=== PATIENT | female | born 1955 | race Caucasian/White ===

== ENCOUNTER 2018-04-14 13:15 | Observation (INO) ==
[2018-04-14] MEDS ORDERED: Pantoprazole 40 MG VIAL IVP SCH (14:15)
[2018-04-14] MEDS ORDERED: Ondansetron 4 MG/2 ML VIAL IVP PRN ×2 (14:15→21:29)
[2018-04-14] MEDS ORDERED: Naloxone 0.4 MG/ML INJ IVP PRN ×2 (14:15→21:29)
[2018-04-14] MEDS ORDERED: *HR* Promethazine 25 MG/ML VIAL IVP PRN (14:15)
[2018-04-14] MEDS ORDERED: 0.9 % Sodium Chloride 1,000 ML IVC SCH (14:15)
[2018-04-14] MEDS ORDERED: OXYCODONE Oral CONC 10 MG/0.5 ML ORAL.SYG SL PRN ×2 (14:18)
--- NOTE | 2018-04-14 14:51 | General Surg History&Physical ---
<Idalia Aguilar - Last Filed: 04/14/18 14:41> Date of Encounter: 04/14/18 Time of Encounter: 14:41 Assessment and Plan (1) Acute appendicitis Current Visit: Yes Status: Acute The assessment and plan as outlined above was discussed with the patient and/or family members who expressed understanding and agreement. All questions were answered. CT Results: IMPRESSION: 1. Sludge and/or small stones in the gallbladder. No pericholecystic fluid. 2. Right renal cyst. 3. Postsurgical changes left upper quadrant likely related to bariatric surgery. 4. No bowel obstruction or bowel wall thickening. Other incidental findings as above. RECOMMENDATIONS: Ultrasound right upper quadrant is advised. Consideration may be given to radionuclide hepatobiliary imaging which can be performed on a nonemergent basis. D/ / Carol Harrison MD / Carol Harrison MD Interpreting Provider: Carol Harrison MD NDUM: The appendix is dilated measuring 10.35 mm at the base with some shotty adjacent lymph nodes and mesenteric fat infiltration distally. Additionally, there is question of a small dot of air. Findings are compatible with appendicitis with early abscess formation not excluded. Addendum was communicated to Clarissa at the clinician's office at 1200 hours, 14 April 2018. Physician was not available. A callback number was provided in the event that the physician had any questions. D/ / Carol Harrison MD / Carol Harrison MD Interpreting Provider: Carol Harrison MD Plan: Patient with acute appendicitis per CT noted below. She is recommended to undergo a laparoscopic appendectomy. Recommendations, risks, and benefits have been reviewed with the patient and she is agreeable to proceed. -NPO -serial labs -discomfort management and supportive care -CXR per assessment and plan below -incentive spirometry -G.I. and DVT prophylaxis Qualifiers: Acute appendicitis type: with localized peritonitis Qualified Code(s): K35.3 - Acute appendicitis with localized peritonitis (2) Cholelithiasis Current Visit: Yes Status: Acute CT abdomen and pelvis noted below. The patient inquires as to whether she could have her gallbladder out during her appendectomy. Did review with this patient that her current right upper quadrant pain could be referred from her appendicitis. Will review with attending surgeon for further recommendations. CT results: IMPRESSION: 1. Sludge and/or small stones in the gallbladder. No pericholecystic fluid. 2. Right renal cyst. 3. Postsurgical changes left upper quadrant likely related to bariatric surgery. 4. No bowel obstruction or bowel wall thickening. Other incidental findings as above. RECOMMENDATIONS: Ultrasound right upper quadrant is advised. Consideration may be given to radionuclide hepatobiliary imaging which can be performed on a nonemergent basis. D/ / Carol Harrison MD / Carol Harrison MD Interpreting Provider: Carol Harrison MD NDUM: The appendix is dilated measuring 10.35 mm at the base with some shotty adjacent lymph nodes and mesenteric fat infiltration distally. Additionally, there is question of a small dot of air. Findings are compatible with appendicitis with early abscess formation not excluded. Addendum was communicated to Clarissa at the clinician's office at 1200 hours, 14 April 2018. Physician was not available. A callback number was provided in the event that the physician had any questions. D/ / Carol Harrison MD / Carol Harrison MD Interpreting Provider: Carol Harrison MD Qualifiers: Cholelithiasis location: gallbladder Cholecystitis presence: without cholecystitis Biliary obstruction: without biliary obstruction Qualified Code(s): K80.20 - Calculus of gallbladder without cholecystitis without obstruction (3) Cough Current Visit: Yes Status: Acute The assessment and plan as outlined above was discussed with the patient and/or family members who expressed understanding and agreement. All questions were answered. Patient reports she has been taking Z-pack for a cough. Will complete CXR (pa and lat) to r/o CAP given fever, cough, and smoking history Incentive spirometry and scheduled respiratory treatments (4) Fever Current Visit: Yes Status: Acute The assessment and plan as outlined above was discussed with the patient and/or family members who expressed understanding and agreement. All questions were answered. See assessment and plan's above Qualifiers: Fever type: unspecified Qualified Code(s): R50.9 - Fever, unspecified History of Present Illness Chief complaint: RLQ and RUQ pain HPI: Ms. Vincent is a 63 year old female with a past medical history of smoking, obesity (s/p gastric sleeve surgery), and fatigue. She presented to her PCP on with complaints of RLQ pain since Tuesday. Her PCP completed a CT of the of the abdomen and pelvis with oral and IV contrast which noted sludge and small stones in the gallbladder, a right renal cyst, and originally there was no mention of appendicitis; however, the CT was extended to show a dilated appendix measuring 10.35 mL and additionally finding of a small dot of possible air. Ms. Vincent reports approximately 6 days ago she had a sudden onset of right lower quadrant pain, associated nausea and diarrhea, anorexia, and fever. She states the discomfort is 7 out of 10 and sharp/constant. Aggravated by movement. Has no alleviating factors. She reports a Tmax of 101 at home. She denies urinary s/s. Reports diarrhea that is dark green. Denies black, tarry, or right red blood per stool. She denies symptoms of coffee ground emesis. She also reports she has had a cough recently and her PCP placed her on Z-pack. She has taken one dose. She reports sputum reduction with the cough. Additionally, Megan states she is been having colicky right upper quadrant pain for quite some time that was aggravated by eating and associated with nausea. She reported that she had had gastric sleeve surgery and felt as though her symptoms were possibly related to that however when she saw her PCP for the right lower quadrant pain CT was done which revealed sludge and possible stones. A referral was made to general surgery at that time. Past Med Surg Social Fam HX - Past Medical History Source: patient Medical history: other (History of obesity and fatigue) Psychiatric history: no psych history - Past Surgical History Surgical History: other (Gastric sleeve 2010) - Social History Smoking Status: Current every day smoker Smokeless Tobacco Status: No Alcohol use: occasionally Drug use: none Occupational status: employed Current living situation: Home - Independent Activity Level: Independent ambulation Recent Out of Country Travel Within the Last 8 Weeks: No Exposure or Possible Exposure to Illness During Travel: No Review of Systems All systems PM: reviewed and no additional remarkable complaints except as stated All systems PM: The remainder of the systems were reviewed and are negative General Surgery Exam VITAL SIGNS: Reviewed. See [employer] GENERAL: In no apparent distress. HEENT: Normocephalic, atraumatic, pupils are equal and reactive, extraocular motions intact, oropharynx is pink and moist, there is no neck adenopathy or JVD noted. CHEST/RESPIRATORY: The thorax is free from signs of trauma. Lung sounds: decreased course breath sounds CARDIAC: Regular rate and rhythm. Normal S1 and S2, without murmurs, gallops, or rubs. VASCULAR: No Edema. 2+ peripheral pulses. ABDOMEN: soft, right upper quadrant and right lower quadrant tenderness. Negative obturator sign. Positive McBurney point. MUSCULOSKELETAL: Good range of motion of all major joints. Extremities without clubbing, cyanosis or edema. NEUROLOGIC EXAM: Alert and oriented x 3. Speech normal. Follows commands. PSYCHIATRIC: Mood normal. SKIN: No rash or lesions. Results - Labs All other labs normal. <Victorina Royal - Last Filed: 04/14/18 20:45> Date of Encounter: 04/14/18 Assessment and Plan (1) Acute appendicitis Current Visit: Yes Status: Acute The assessment and plan as outlined above was discussed with the patient and/or family members who expressed understanding and agreement. All questions were answered. discussed with patient and her that she has acute appendicitis on CT, which was done tuesday, will plan laparoscopic appendectomy possible open, risks and benefits discussed and she wishes to proceed npo prn pain control antibiotics prn antiemetics Qualifiers: Acute appendicitis type: with localized peritonitis Qualified Code(s): K35.3 - Acute appendicitis with localized peritonitis History of Present Illness HPI: Ms. Vincent is a 63 year old female Past Med Surg Social Fam HX - Family History Brother Hx Family Cardiac Disorders: Yes Mother Hx Family Cancer: Yes Father Hx Family Cancer: Yes Review of Systems All systems PM: The remainder of the systems were reviewed and are negative General Surgery Exam Initial Vital Signs Resp Pulse Ox 16 100 04/14/18 15:29 04/14/18 15:29 Results - Labs 04/14/18 14:30 04/14/18 14:30 Abnormal lab results WBC 11.7 K/mcL (4.3-11.1) H 04/14/18 14:30 PT 12.4 Seconds (9.4-12.1) H 04/14/18 14:30 Diabetes panel 04/14/18 Range/Units 14:30 Sodium 137 (136-145) mEq/L Potassium 3.9 (3.5-5.1) mEq/L Chloride 103 (98-107) mEq/L Carbon Dioxide 26 (23-29) mEq/L BUN 10 (8-23) mg/dL Creatinine 0.71 (0.60-1.20) mg/dL Glucose 98 (70-105) mg/dL Calcium 9.2 (8.6-10.3) mg/dL Calcium panel 04/14/18 Range/Units 14:30 Calcium 9.2 (8.6-10.3) mg/dL Pituitary panel 04/14/18 Range/Units 14:30 Sodium 137 (136-145) mEq/L Potassium 3.9 (3.5-5.1) mEq/L Chloride 103 (98-107) mEq/L Carbon Dioxide 26 (23-29) mEq/L BUN 10 (8-23) mg/dL Creatinine 0.71 (0.60-1.20) mg/dL Glucose 98 (70-105) mg/dL Calcium 9.2 (8.6-10.3) mg/dL Adrenal panel 04/14/18 Range/Units 14:30 Sodium 137 (136-145) mEq/L Potassium 3.9 (3.5-5.1) mEq/L Chloride 103 (98-107) mEq/L Carbon Dioxide 26 (23-29) mEq/L BUN 10 (8-23) mg/dL Creatinine 0.71 (0.60-1.20) mg/dL Glucose 98 (70-105) mg/dL Calcium 9.2 (8.6-10.3) mg/dL All other labs normal. - Attending Attestation I have personally performed a face to face evaluation on this patient. I have reviewed and agree with the care plan. History and Exam by me shows:
[2018-04-14 15:01] LABS: Basophils % 0.3 %; Eosinophils # 0.1 K/mcL (0.0-0.6); Eosinophils % 0.8 %; Hematocrit 41.7 % (35.3-44.9); Hemoglobin 14.1 g/dL (11.5-15.4); Immature Granulocytes % 0.3 % (0-4); Lymphocytes # 1.9 K/mcL (0.6-4.6); Lymphocytes % 15.9 %; Mean Corpuscular HGB Conc 33.8 g/dL (31.6-35.5); Mean Corpuscular Hemoglobin 31.7 pg (28.0-33.3); Mean Corpuscular Volume 93.7 fL (83.0-100.0); Mean Platelet Volume 10.6 fL (9.4-12.4); Monocytes # 0.9 K/mcL (0.0-1.3); Monocytes % 7.6 %; Neutrophils # 8.8 K/mcL (1.6-8.9); Platelet Count 187 K/mcL (140-400); Red Blood Count 4.45 M/mcL (3.82-4.97); Red Cell Distribution Width 12.1 % (11.5-14.5); Segmented Neutrophils % 75.1 %
[2018-04-14] MEDS ORDERED: Acetaminophen IV 1,000 MG/100 ML INFUS..BTL IVPB ONE (15:04)
[2018-04-14 15:07] LABS: Activated Partial Thrombo Time 32.2 Seconds (26.0-36.0)
[2018-04-14 15:11] LABS: INR 1.1; Prothrombin Time 12.4 Seconds (9.4-12.1)
[2018-04-14 15:14] LABS: BUN/Creatinine Ratio 14 (6-26); Blood Urea Nitrogen 10 mg/dL (8-23); Calcium 9.2 mg/dL (8.6-10.3); Carbon Dioxide 26 mEq/L (23-29); Chloride 103 mEq/L (98-107); Glucose 98 mg/dL (70-105); Osmolality,Calculated 283 (280-300); Potassium 3.9 mEq/L (3.5-5.1); Sodium 137 mEq/L (136-145); eGFR For African Americans > 60 (> 60); eGFR For Non-African Americans > 60 (> 60)
[2018-04-14] MEDS: Ipratropium/Albuterol Neb 3 ML IH SCH ×4 (15:28→23:40)
[2018-04-14] MEDS ORDERED: Piperacillin/Tazobactam 3.375 GM in 0.9 % Sodium Chloride Mini Bag 100 ML IVPB SCH (16:00)
[2018-04-14] MEDS ORDERED: *HR* Propofol 200 MG/20 ML VIAL IVP ONE (16:37)
[2018-04-14] MEDS ORDERED: *HR* FentaNYL (PF) 100 MCG/2 ML VIAL ONE ×2 (16:37→18:04)
[2018-04-14] MEDS ORDERED: Dexamethasone 4 MG/ML VIAL ONE (16:40)
[2018-04-14] MEDS ORDERED: Ondansetron 4 MG/2 ML VIAL ONE (16:40)
[2018-04-14] MEDS ORDERED: *HR* Rocuronium Bromide 50 MG/5 ML VIAL ONE (16:40)
[2018-04-14] MEDS ORDERED: Neostigmine Methylsulfate 3 MG/3 ML SYRINGE ONE (16:40)
[2018-04-14] MEDS ORDERED: Albuterol 2.5 MG/3 ML NEBULIZER ONE (18:28)
--- NOTE | 2018-04-14 18:38 | Anesthesia Evaluation PreOp ---
Date of Encounter: 04/14/18 Time of Encounter: 18:36 - Past History Planned Operation: Laparoscopic Appendectomy Cardiac History: Denies any Significant Hx Pulmonary History: Smoker (20+ years), Snore [employer] History: Denies Any Significant HX Other Medical History: Denies Any Significant HX Anesthesia History: No Prior Anesthetic Complications, Past Anesthesia (gastric sleeve) Alcohol Use: occasionally Drug use: none Medications and Allergies 3 Allergy/AdvReac Type Severity Reaction Status Date / Time NSAIDS (Non-Steroidal AdvReac See Verified 04/14/18 16:20 Anti-Inflamma Comments - Meds/Allergy Pre-op Review Medications Reviewed: Yes Allergies Reviewed: Yes Beta Blockers on Current Med List: No Anesthesia Results - Labs 04/14/18 14:30 04/14/18 14:30 Anesthesia Exam Vital Signs/O2 Sat, Most Current Temp Pulse Resp BP Pulse Ox 99.0 F 80 14 110/70 99 04/14/18 15:57 04/14/18 15:57 04/14/18 15:57 04/14/18 15:57 04/14/18 15:57 Weight: 138.7 lbs NPO (# of Hours): 8 Pain Scale: 5 (abdomen) Pain Scale Used: Numeric (1 - 10) - HEENT Pupil (Motor): EOMI Mallampati: II Teeth: Edentulous Oral Opening: Greater than 3 - [employer] LOC: Oriented [employer] Motor: Normal RUE, Normal LUE, Normal RLE, Normal LLE, Normal Face [employer] Sensory: Normal: RUE, LUE, RLE, LLE, Face - Cardiac Rhythm: Regular Murmur: None - Pulmonary Breath Sounds: bilateral Clear Respiratory Effort: Symmetrical Anesthesia Assess/Plan ASA Score: 2 Modified Leisenring Scale for Level of Consciousness: Cooperative, oriented, and tranquil Anesthetic Plan: General Monitoring Plan: Standard Monitors Recovery Plan: PACU
[2018-04-14] MEDS ORDERED: *HR* Morphine 10 MG/ML VIAL ONE (19:35)
[2018-04-14] MEDS ORDERED: Acetaminophen IV 1,000 MG/100 ML INFUS..BTL ONE (19:44)
--- NOTE | 2018-04-14 20:48 | Anesthesia Evaluation Post Op ---
Date of Encounter: 04/14/18 Time of Encounter: 21:28 Notes: Patient's vital signs have been reviewed. Patient is stable postoperatively and has adequately recovered from anesthesia. Patient is determined to have stable airway patency and respiratory function including respiratory rate and oxygen saturation. Patient has a stable heart rate, blood pressure and adequate hydration. Patients mental status is acceptable. Patients temperature is appropriate. Pain and nausea are adequately controlled. - Discharge PostOp Status: Transfer Patient to floor
[2018-04-14] MEDS ORDERED: *HR* Morphine 2 MG/ML SYRINGE IVP ONE (20:56)
[2018-04-14] MEDS ORDERED: Ringers Solution, Lactated 1,000 ML ONE (21:08)
[2018-04-14] MEDS: OXYCODONE Oral CONC 10 MG/0.5 ML ORAL.SYG SL PRN (21:54)
[2018-04-14] MEDS: 0.9 % Sodium Chloride 1,000 ML IVC SCH (21:56)
[2018-04-14] MEDS: Piperacillin/Tazobactam 3.375 GM in 0.9 % Sodium Chloride Mini Bag 100 ML IVPB SCH (23:22)
[2018-04-15] MEDS: Ipratropium/Albuterol Neb 3 ML IH SCH ×6 (03:50→23:47)
[2018-04-15] MEDS: OXYCODONE Oral CONC 10 MG/0.5 ML ORAL.SYG SL PRN ×4 (04:04→23:03)
[2018-04-15 04:53] LABS: Basophils % 0.1 %; Hematocrit 37.7 % (35.3-44.9); Hemoglobin 12.6 g/dL (11.5-15.4); Immature Granulocytes % 0.5 % (0-4); Lymphocytes # 0.6 K/mcL (0.6-4.6); Lymphocytes % 4.9 %; Mean Corpuscular HGB Conc 33.4 g/dL (31.6-35.5); Mean Corpuscular Hemoglobin 31.7 pg (28.0-33.3); Mean Platelet Volume 10.5 fL (9.4-12.4); Monocytes # 0.5 K/mcL (0.0-1.3); Monocytes % 3.7 %; Neutrophils # 11.4 K/mcL (1.6-8.9); Platelet Count 158 K/mcL (140-400); Red Blood Count 3.97 M/mcL (3.82-4.97); Red Cell Distribution Width 12.2 % (11.5-14.5); Segmented Neutrophils % 90.8 %
[2018-04-15 05:16] LABS: BUN/Creatinine Ratio 12 (6-26); Blood Urea Nitrogen 9 mg/dL (8-23); Calcium 8.5 mg/dL (8.6-10.3); Carbon Dioxide 22 mEq/L (23-29); Chloride 102 mEq/L (98-107); Glucose 180 mg/dL (70-105); Osmolality,Calculated 283 (280-300); Potassium 3.8 mEq/L (3.5-5.1); Sodium 135 mEq/L (136-145); eGFR For African Americans > 60 (> 60); eGFR For Non-African Americans > 60 (> 60)
[2018-04-15] MEDS: 0.9 % Sodium Chloride 1,000 ML IVC SCH ×2 (05:58→18:16)
[2018-04-15] MEDS: Pantoprazole 40 MG VIAL IVP SCH (05:58)
[2018-04-15] MEDS: Piperacillin/Tazobactam 3.375 GM in 0.9 % Sodium Chloride Mini Bag 100 ML IVPB SCH ×2 (09:35→16:03)
--- NOTE | 2018-04-15 14:43 | Operative Note ---
Date of procedure: 04/14/18 Pre-op diagnosis: acute appendicitis Post-op diagnosis: other (Perforated appendicitis with abscess) Procedure: Laparoscopic appendectomy Complications: none immediate Anesthesia: GETA, local Local Anesthetics: 0.5% Sensorcaine HCL SubQ (cc) Surgeon: Victorina Royal Was there an baking assistant present: No Estimated blood loss (cc): 10 Specimen: appendix Condition: stable Disposition: PACU Procedure in Detail: The patient was brought into the operating suite and placed supine on the operating table. Sign-in was performed and everyone was in agreement. Anesthesia was induced and patient was endotracheally intubated by anesthesia without incident. An OG tube was placed by anesthesia. The abdomen was prepped and draped in the usual sterile fashion. A timeout was performed and again everyone was in agreement. A supraumbilical incision was made through the skin and the subcutaneous tissue with an 11 blade. Towel clamps were placed on either side of the umbilicus for retraction. S-retractors were used to dissect down to the anterior abdominal wall linea alba fascia. A Veress needle was placed into this incision and a water drop test confirmed placement and the abdomen was insufflated. We then entered the abdomen with the 5 mm 0 degree laparoscope on a 5 mm X-ramón trocar. The area under entry was visualized and there was no bleeding and no apparent bowel injury. We placed a suprapubic 5 mm port under direct visualization after first incising the skin with an 11 blade. The laparoscope was placed through this and we exchanged the supraumbilical port for a 12 mm port under direct visualization. We then placed another 5 mm port in the left lower quadrant position under direct visualization after first incising the skin with an 11 blade. The patient was placed in slight Trendelenburg left side down position. The cecum was located as was the appendix which was retrocecal and adherent to the retroperitoneum. The appendix was grasped and attempted to be retracted with a laparoscopic Basye and pus erupted from an abscess. The pus was suctioned from the abdomen and the area irrigated/suctioned. A [place] was used to dissect between the mesoappendix and the appendix at the base of the cecum. While attempting to elevate the appendix, due the inflammation and friability the mucosa of the appendix tore free from the muscle/serosa. The appendix at the base of the cecum was transected with a laparoscopic flex-ex ETS stapler using a white load. The mucosa was removed from the abdomen with a laparoscopic [place]. The remainder of the appendix was taken off the retroperitoneum with gentle blulnt dissection and hook cautery. The appendix was placed in a laparoscopic Endo Catch bag and removed via the supraumbilical incision site. The staple line was evaluated and there was no bleeding and the staple line was intact. The area was copiously irrigated with sterile saline which was then suctioned free from the abdomen. A 19 F sharonda drain was placed into the abdomen and placed along the right colic gutter and came through the abdominal wall at the left lower quadrant trocar site. Sharonda drain was secured to the skin with a 2-0 silk stitch. The insufflation was suctioned free from the abdomen and all trochars removed. We closed the abdominal wall at the supraumbilical incision site with an 0 Vicryl [id number] stitch. A 30 cc of 0.5% Marcaine was injected subcutaneously at the 3 port sites. The skin at the 5 mm port site was closed with 4-0 Monocryl interrupted subcuticular stitches. The skin at the supraumbilical incision site was closed with a 4-0 Monocryl running subcuticular stitch. Steri-Strips were applied to the wounds. The patient was extubated in the OR and tolerated the procedure well and was taken to PACU after all lap and instrument counts were correct at the end of the case.
--- NOTE | 2018-04-15 14:54 | General Surgery Progress Note ---
Date of Encounter: 04/15/18 Time of Encounter: 14:51 - Assessment and Plan (1) Perforated appendicitis Current Visit: Yes Status: Resolved pt is post op laparoscopic appendectomy for perforated appendix and intraabdominal abscess she would like to stay on clears today and not advance continue prn pain control add scheduled ofirmev gi/dvt prophylaxis pulmonary toilet OOB and ambulate continue zosyn (2) Intra-abdominal abscess Current Visit: Yes Status: Acute (3) Leukocytosis Current Visit: Yes Status: Acute due to perforated appendicitis with abscess s/p lap appy continue abx, trend wbc Qualifiers: Leukocytosis type: unspecified Qualified Code(s): D72.829 - Elevated white blood cell count, unspecified Subjective Patient reports: still having pain, tolerating liquids well, flatus, no bowel movement, afebrile Objective Vital Signs - Last 8 Hours Temp Pulse Resp BP Pulse Ox 04/15/18 12:09 98.3 F 80 14 125/82 98 04/15/18 12:02 98.2 F 92 14 115/68 96 04/15/18 11:33 16 87 04/15/18 07:55 16 91 04/15/18 06:52 97.8 F 89 14 107/64 91 Intake and Output 04/14/18 04/15/18 04/15/18 23:59 07:59 15:59 Intake Total 1280 / 1280 390 / 390 Output Total 365 / 365 1155 / 1155 Balance - 915 / 915 -765 / -765 Intake: IV Fluids 1100 / 1100 0.9 % Sodium Chloride 1,000 ML 1000 / 1000 @ 125 mls/hr IVC .Q8H KIKI Rx#: [id number] Zosyn 3.375 GM In 0.9 % Sodium 100 / 100 Chloride (Mini-Bag +) 100 ML @ 25 mls/hr IVPB Q8HR KIKI Rx#: [id number] Oral 180 / 180 390 / 390 Output: Urine 350 / 350 1150 / 1150 Estimated Blood Loss Wound Drainage Left Lower Abdomen Other: Meal Breakfast Weight 62.596 kg 62.6 kg Blood Glucose* 96 Patient Weight 04/15/18 23:59 Weight 62.6 kg - General physical appearance well developed, well nourished, moderate pain - Eyes normal ocular movement - ENT normal mucosa, normocephalic - Neck Neck exam: trachea midline - Respiratory normal expansion, clear to auscultation - Cardiovascular Cardiovascular exam: Present: RRR - Abdomen Abdomen: Present: bowel sounds present, soft, tender (appropriate post op tenderness). Absent: guarding, rebound Additional Comments: Pk drain with serous drainage, no purulence - Incision Incision: Present: clean and dry, intact - Integumentary no rash, no growths - Neurologic CN 2-12 grossly intact, normal coordination - Musculoskeletal normal posture - Psychiatric oriented to time, oriented to person, oriented to place, speech is normal, memory intact - Labs 04/15/18 04:31 04/15/18 04:31 Short CBC 04/15/18 04/14/18 Range/Units 04:31 14:30 WBC 12.5 H 11.7 H (4.3-11.1) K/mcL Hgb 12.6 D 14.1 (11.5-15.4) g/dL Hct 37.7 41.7 (35.3-44.9) % Plt Count 158 187 (140-400) K/mcL Neutrophils # 11.4 H 8.8 (1.6-8.9) K/mcL BMP 04/15/18 04/14/18 Range/Units 04:31 14:30 Sodium 135 L 137 (136-145) mEq/L Potassium 3.8 3.9 (3.5-5.1) mEq/L Chloride 102 103 (98-107) mEq/L Carbon Dioxide 22 L 26 (23-29) mEq/L BUN 9 10 (8-23) mg/dL Creatinine 0.73 0.71 (0.60-1.20) mg/dL Glucose 180 H 98 (70-105) mg/dL Calcium 8.5 L 9.2 (8.6-10.3) mg/dL Vital Signs Temp Pulse Resp BP Pulse Ox 04/15/18 12:09 98.3 F 80 14 125/82 98 04/15/18 12:02 98.2 F 92 14 115/68 96 04/15/18 11:33 16 87 04/15/18 07:55 16 91 04/15/18 06:52 97.8 F 89 14 107/64 91 04/15/18 03:52 14 96 04/15/18 03:26 98.6 F 84 16 105/63 95 04/15/18 01:00 97.9 F 87 16 101/56 94 04/14/18 23:55 97.7 F 90 16 102/59 95 04/14/18 23:40 16 96 04/14/18 23:01 97.6 F 80 14 96/62 96 04/14/18 22:26 98.2 F 78 16 108/67 97 04/14/18 21:48 98.6 F 87 16 115/65 99 04/14/18 21:29 100.2 F H 85 16 95 04/14/18 21:20 82 14 136/63 94 04/14/18 21:10 101.1 F H 85 12 130/80 94 04/14/18 21:00 85 14 129/67 95 04/14/18 20:50 85 14 108/68 94 04/14/18 20:40 99.5 F 86 16 141/77 97 04/14/18 15:57 99.0 F 80 14 110/70 99 04/14/18 15:29 16 100 Intake and Output 04/14/18 04/15/18 04/15/18 23:59 07:59 15:59 Intake Total 1280 / 1280 390 / 390 Output Total 365 / 365 1155 / 1155 Balance - 915 / 915 -765 / -765 Intake: IV Fluids 1100 / 1100 0.9 % Sodium Chloride 1,000 ML 1000 / 1000 @ 125 mls/hr IVC .Q8H KIKI Rx#: [id number] Zosyn 3.375 GM In 0.9 % Sodium 100 / 100 Chloride (Mini-Bag +) 100 ML @ 25 mls/hr IVPB Q8HR KIKI Rx#: [id number] Oral 180 / 180 390 / 390 Output: Urine 350 / 350 1150 / 1150 Estimated Blood Loss Wound Drainage Left Lower Abdomen 5 Other: Meal Breakfast Weight 62.596 kg 62.6 kg Blood Glucose* 96 Patient Weight 04/15/18 23:59 Weight 62.6 kg - VTE Documentation of Mechanical Device: Intermittent pneumatic compression device Consult Discharge Plan - Plan Referrals: Lorna Guerra REFERENCE INVESTIGATOR [Primary Care Provider] -
[2018-04-15] MEDS: Acetaminophen IV 1,000 MG/100 ML INFUS..BTL IVPB SCH (17:12)
[2018-04-16] MEDS: Acetaminophen IV 1,000 MG/100 ML INFUS..BTL IVPB SCH ×5 (00:08→23:11)
[2018-04-16] MEDS: Piperacillin/Tazobactam 3.375 GM in 0.9 % Sodium Chloride Mini Bag 100 ML IVPB SCH ×4 (00:56→23:15)
[2018-04-16] MEDS: OXYCODONE Oral CONC 10 MG/0.5 ML ORAL.SYG SL PRN ×2 (03:48→10:32)
[2018-04-16] MEDS: 0.9 % Sodium Chloride 1,000 ML IVC SCH ×2 (03:49→12:23)
[2018-04-16] MEDS: Ipratropium/Albuterol Neb 3 ML IH SCH ×6 (04:04→23:02)
[2018-04-16 05:27] LABS: Eosinophils % 0.4 %; Hemoglobin 11.2 g/dL (11.5-15.4); Immature Granulocytes % 0.3 % (0-4); Mean Corpuscular HGB Conc 32.9 g/dL (31.6-35.5); Mean Corpuscular Hemoglobin 32.3 pg (28.0-33.3); Mean Platelet Volume 10.7 fL (9.4-12.4); Monocytes % 7.4 %; Platelet Count 170 K/mcL (140-400); Red Blood Count 3.47 M/mcL (3.82-4.97); Red Cell Distribution Width 12.3 % (11.5-14.5); Segmented Neutrophils % 68.5 %
[2018-04-16 05:28] LABS: Basophils % 0.4 %; Lymphocytes # 1.7 K/mcL (0.6-4.6); Monocytes # 0.6 K/mcL (0.0-1.3); Neutrophils # 5.1 K/mcL (1.6-8.9)
[2018-04-16 05:44] LABS: BUN/Creatinine Ratio 13 (6-26); Blood Urea Nitrogen 8 mg/dL (8-23); Calcium 7.9 mg/dL (8.6-10.3); Carbon Dioxide 25 mEq/L (23-29); Chloride 109 mEq/L (98-107); Glucose 105 mg/dL (70-105); Osmolality,Calculated 283 (280-300); Potassium 3.3 mEq/L (3.5-5.1); Sodium 137 mEq/L (136-145); eGFR For African Americans > 60 (> 60); eGFR For Non-African Americans > 60 (> 60)
[2018-04-16] MEDS: Pantoprazole 40 MG VIAL IVP SCH (06:22)
--- NOTE | 2018-04-16 11:42 | General Surgery Progress Note ---
Date of Encounter: 04/16/18 Time of Encounter: 11:40 - Assessment and Plan (1) Perforated appendicitis Current Visit: Yes Status: Resolved pt is post op #2 laparoscopic appendectomy for perforated appendix and intraabdominal abscess advanced to regular continue prn pain control - start percocet ofirmev gi/dvt prophylaxis pulmonary toilet OOB and ambulate continue zosyn dc planning (2) Intra-abdominal abscess Current Visit: Yes Status: Acute continue abx wbc normal today (3) Leukocytosis Current Visit: Yes Status: Acute due to perforated appendicitis with abscess s/p lap appy continue abx, normal wbc today Qualifiers: Leukocytosis type: unspecified Qualified Code(s): D72.829 - Elevated white blood cell count, unspecified Subjective Patient reports: no new complaints, feels better, still having pain, pain is less, tolerating liquids well, flatus, no bowel movement, afebrile Objective Vital Signs - Last 8 Hours Temp Pulse Resp BP Pulse Ox 04/16/18 11:03 18 92 04/16/18 10:49 98.3 F 86 20 119/69 94 04/16/18 07:57 16 90 04/16/18 07:31 98.2 F 73 16 85/52 90 04/16/18 04:04 17 95 04/16/18 03:42 99.6 F 75 16 116/61 95 Intake and Output 04/15/18 04/16/18 04/16/18 23:59 07:59 15:59 Intake Total 1200 / 1200 1320 / 1320 270 / 270 Output Total 230 / 230 320 / 320 50 / 50 Balance 970 / 970 1000 / 1000 220 / 220 Intake: IV Fluids 1200 / 1200 1300 / 1300 0.9 % Sodium Chloride 1,000 ML 1000 / 1000 1000 / 1000 @ 125 mls/hr IVC .Q8H KIKI Rx#: [id number] Ofirmev 1,000 mg/100 ml 1,000 100 / 100 200 / 200 mg In 100 ml @ 400 mls/hr IVPB Q6HR KIKI Rx#:[id number] Zosyn 3.375 GM In 0.9 % Sodium 100 / 100 100 / 100 Chloride (Mini-Bag +) 100 ML @ 25 mls/hr IVPB Q8HR KIKI Rx#: [id number] Oral 0 / 0 20 / 20 270 / 270 Output: Urine 200 / 200 300 / 300 Wound Drainage 50 / 50 Left Lower Abdomen 50 / 50 Other: Meal Breakfast # Voids 1 Weight 62.3 kg Patient Weight 04/16/18 23:59 Weight 62.3 kg - General physical appearance well developed, well nourished, no distress, moderate pain - Eyes PERRL, normal ocular movement - ENT normal mucosa, normocephalic - Neck Neck exam: trachea midline - Respiratory normal expansion, clear to auscultation - Cardiovascular Cardiovascular exam: Present: RRR - Abdomen Abdomen: Present: bowel sounds present, soft, tender (appropriate post op tenderness). Absent: guarding, rebound - Integumentary no rash, no growths - Neurologic CN 2-12 grossly intact - Musculoskeletal normal posture - Psychiatric oriented to time, oriented to person, oriented to place, speech is normal, memory intact - Labs 04/16/18 04:50 04/16/18 04:50 Diabetes panel 04/16/18 Range/Units 04:50 Sodium 137 (136-145) mEq/L Potassium 3.3 L (3.5-5.1) mEq/L Chloride 109 H (98-107) mEq/L Carbon Dioxide 25 (23-29) mEq/L BUN 8 (8-23) mg/dL Creatinine 0.61 (0.60-1.20) mg/dL Glucose 105 (70-105) mg/dL Calcium 7.9 L (8.6-10.3) mg/dL Calcium panel 04/16/18 Range/Units 04:50 Calcium 7.9 L (8.6-10.3) mg/dL Pituitary panel 04/16/18 Range/Units 04:50 Sodium 137 (136-145) mEq/L Potassium 3.3 L (3.5-5.1) mEq/L Chloride 109 H (98-107) mEq/L Carbon Dioxide 25 (23-29) mEq/L BUN 8 (8-23) mg/dL Creatinine 0.61 (0.60-1.20) mg/dL Glucose 105 (70-105) mg/dL Calcium 7.9 L (8.6-10.3) mg/dL Adrenal panel 04/16/18 Range/Units 04:50 Sodium 137 (136-145) mEq/L Potassium 3.3 L (3.5-5.1) mEq/L Chloride 109 H (98-107) mEq/L Carbon Dioxide 25 (23-29) mEq/L BUN 8 (8-23) mg/dL Creatinine 0.61 (0.60-1.20) mg/dL Glucose 105 (70-105) mg/dL Calcium 7.9 L (8.6-10.3) mg/dL - VTE Documentation of Mechanical Device: Intermittent pneumatic compression device Consult Discharge Plan - Plan Referrals: Lorna Guerra CNP [Primary Care Provider] -
--- NOTE | 2018-04-16 11:44 | Discharge Summary ---
<Idalia Aguilar - Last Filed: 04/17/18 08:41> Orders not resulted at time of discharge: Pending orders 04/14/18 19:33 Surgical Pathology [PTH] Routine Date of Encounter: 04/17/18 Time of Encounter: 08:48 - Discharge Diagnosis (1) Acute appendicitis Priority: Primary Status: Resolved Qualifiers: Acute appendicitis type: with localized peritonitis Qualified Code(s): K35.3 - Acute appendicitis with localized peritonitis (2) Cholelithiasis Priority: Secondary Status: Acute Qualifiers: Cholelithiasis location: gallbladder Cholecystitis presence: without cholecystitis Biliary obstruction: without biliary obstruction Qualified Code(s): K80.20 - Calculus of gallbladder without cholecystitis without obstruction (3) Cough Priority: Secondary Status: Acute (4) Fever Priority: Secondary Status: Acute Qualifiers: Fever type: unspecified Qualified Code(s): R50.9 - Fever, unspecified General Surgery Exam Initial Vital Signs Resp Pulse Ox 16 100 04/14/18 15:29 04/14/18 15:29 - Hospital Course Time spent discussing smoking cessation with patient: 3 to 10 minutes - Time Spent with Patient Total time spent providing and/or coordinating discharge services: - Discharge Medications Prescriptions: Ondansetron ODT [Zofran ODT] 4 mg SL Q4HR PRN #15 tab.rapdis PRN Reason: Nausea OxyCODONE/APAP 5/325 [Percocet 5/325 MG] 1 each PO Q6HR PRN 7 Days #28 tablet PRN Reason: Pain Ciprofloxacin HCl [Cipro] 500 mg PO BID 7 Days #14 tablet Docusate Sodium [Colace] 100 mg PO BID 14 Days #30 capsule GuaiFENesin/Dextromethorphan [Mucinex DM] 1 each PO BID #14 tab.er.12h metroNIDAZOLE [Flagyl] 500 mg PO TID 7 Days #21 tablet Home Medications: Biotin 1 mg PO DAILY 04/15/18 [History] Ciprofloxacin HCl [Cipro] 500 mg PO BID 7 Days #14 tablet 04/17/18 [Rx] Docusate Sodium [Colace] 100 mg PO BID 14 Days #30 capsule 04/17/18 [Rx] GuaiFENesin/Dextromethorphan [Mucinex DM] 1 each PO BID #14 tab.er.12h 07/02/18 [Rx] Ondansetron ODT [Zofran ODT] 4 mg SL Q4HR PRN #15 tab.rapdis 04/17/18 [Rx] OxyCODONE/APAP 5/325 [Percocet 5/325 MG] 1 each PO Q6HR PRN 7 Days #28 tablet [Rx] metroNIDAZOLE [Flagyl] 500 mg PO TID 7 Days #21 tablet 04/17/18 [Rx] Allergies/Adverse Reactions: 3 Allergy/AdvReac Type Severity Reaction Status Date / Time NSAIDS (Non-Steroidal AdvReac See Verified 04/15/18 14:17 Anti-Inflamma Comments Date of admission: 04/14/18 14:09 Primary care physician: Lorna Guerra CNP Discharging clinician: Victorina Aguilar) Anticipated date of discharge: 04/17/18 Labs on day of discharge: Labs from last 24 hours 04/17/18 06:26 WBC 8.1 RBC 3.48 L Hgb 11.0 L Hct 33.6 L MCV 96.6 MCH 31.6 MCHC 32.7 RDW 12.5 Plt Count 202 MPV 10.2 Immature Gran % 0.6 Seg Neutrophils % 73.2 Lymphocytes % 16.9 Monocytes % 7.0 Eosinophils % 1.9 Basophils % 0.4 Neutrophils # 5.9 Lymphocytes # 1.4 Monocytes # 0.6 Eosinophils # 0.2 Basophils # 0.0 - Impressions ITS Impressions Chest X-Ray 04/14/18 14:47 IMPRESSION: No acute finding in the chest. Stable mild hyperinflation may indicate underlying COPD. D/ / Clayton Sow MD / Clayton Sow MD Interpreting Provider: Clayton Sow MD - Patient Status Disposition: Home, Self-Care Condition: Good Functional capacity at discharge: independent ambulation Overall status at discharge: patient is progressing back to baseline - Discharge Instructions Instructions: Chirag-Parham Drain Care (DC), Laparoscopic Appendectomy (DC) Follow Up With: Naya Stoner CNP [Advanced Practice Nurse] - 04/24/18 2:00 pm Additional Instructions: General Surgical Discharge Instructions 1. No pushing, pulling, or lifting greater than 15 lbs for 4 weeks (depending upon procedure). 2. You may shower beginning today, but no tub baths, soaking, or swimming for 2 weeks. 3. You may resume driving when you are off narcotics and are safe to react in a car. 4. You may take 650 mg Tylenol by mouth every 6 hours (I recommend alternating this with the if needed Percocet). If this does not relieve your pain, you may take the as needed Percocet every 6 hours. Do not exceed more than 4 g of acetaminophen daily. Take narcotics as directed. Do not take more narcotics then directed and do not share your narcotics with any other person. Do not drink alcohol while on narcotics. 5. Take stool softeners (Colace) or a water based laxative (Miralax) while taking narcotics. You may hold for loose stools. 6. Report any fevers greater than 100.5F, increase abdominal discomfort, drainage that looks like pus, increased redness or pain at the surgical site, or any vomiting. 7. Report any pain in the calves, shortness of breath, or rapid heartbeat. 8. Follow-up in the office as directed. 9. If you were prescribed antibiotics, do not stop them without talking to your provider. 10. Do not drink alcohol while taking metronidazole. Doing so can cause violent vomiting and abdominal pain. Refrain from alcohol for 48 hours after completing metronidazole. Daily TOBIAS Drain Care: 1. Remove dressings. Shower with antibacterial soap. 2. Do not let the TOBIAS drain dangle from your body. Use the safety pin to secure to your clothing. Secure the TOBIAS to a lanyard or other type of long necklace when you shower. 3. Replace drain gauze and taped to secure. 4. Record the output from your TOBIAS bulb (at least once daily) on the form provided and bring this with you to your follow-up appointment. 5. Keep the TOBIAS drain to suction (squeeze the bulb and replace the cap while squeezing). 6. Strip the lines twice daily (hold onto the line as close to the body as you can, then with the other hand push the contents of the line into the TOBIAS bulb). <Victorina Royal - Last Filed: 04/17/18 10:03> Orders not resulted at time of discharge: Pending orders 04/14/18 19:33 Surgical Pathology [PTH] Routine 04/17/18 04:00 CBC [Complete Blood Count] [HEME] AM 0400 Date of Encounter: 04/17/18 Time of Encounter: 10:00 - Discharge Diagnosis (1) Perforated appendicitis Priority: Primary Status: Resolved (2) Intra-abdominal abscess Priority: Secondary Status: Acute (3) Leukocytosis Priority: Secondary Status: Acute Qualifiers: Leukocytosis type: unspecified Qualified Code(s): D72.829 - Elevated white blood cell count, unspecified General Surgery Exam Initial Vital Signs Resp Pulse Ox 16 100 04/14/18 15:29 04/14/18 15:29 - General physical appearance well developed, well nourished, no distress - Eyes PERRL, normal ocular movement - ENT normal mucosa, normocephalic - Neck trachea midline - Respiratory normal respiratory effort, clear to auscultation - Cardiovascular Cardiovascular exam: Present: RRR - Abdomen Abdomen general surgery: Present: bowel sounds present, soft, tender ( appropriate post op tenderness) - Incision Incision: Present: clean and dry, intact - Integumentary Integumentary general surgery: Present: warm and dry, no abnormal pigmentation - Neurologic Present: CN 2-12 grossly intact - Musculoskeletal Present: normal posture - Psychiatric Psychiatric general surgery: Present: A&Ox3, speech is normal - Hospital Course Hospital course: Ms. Vincent is a 63 year old female admitted amarilys with appendicitis. She went to the OR that same day for a laparoscopic appendectomy. Patient had perforated appendicitis with abscess. Pk drain in place. Post op recovery a little slow due to pain. WBC came down to normal pod 2. Tolerating regular diet. Pain controlled with po medication. TOBIAS drain with serous drainage. Afebrile, vitals stable - Time Spent with Patient Total time spent providing and/or coordinating discharge services: Date of admission: 04/14/18 14:09 Primary care physician: Lorna Guerra CNP Discharging clinician: Victorina Royal Anticipated date of discharge: 04/17/18 Labs on day of discharge: Labs from last 24 hours 04/16/18 04/16/18 04/14/18 04:50 04:50 16:58 WBC 7.5 RBC 3.47 L Hgb 11.2 L Hct 34.0 L MCV 98.0 MCH 32.3 MCHC 32.9 RDW 12.3 Plt Count 170 MPV 10.7 Immature Gran % 0.3 Seg Neutrophils % 68.5 Lymphocytes % 23.0 Monocytes % 7.4 Eosinophils % 0.4 Basophils % 0.4 Neutrophils # 5.1 Lymphocytes # 1.7 Monocytes # 0.6 Eosinophils # 0.0 Basophils # 0.0 Sodium 137 Potassium 3.3 L Chloride 109 H Carbon Dioxide 25 BUN 8 Creatinine 0.61 Est GFR ( Amer) > 60 Est GFR (Non-Af Amer) > 60 BUN/Creatinine Ratio 13 Glucose 105 POC Glucose 96 Calculated Osmolality 283 Calcium 7.9 L - Impressions ITS Impressions Chest X-Ray 04/14/18 14:47 IMPRESSION: No acute finding in the chest. Stable mild hyperinflation may indicate underlying COPD. D/ / Clayton Sow MD / Clayton Sow MD Interpreting Provider: Clayton Sow MD - Patient Status Overall status at discharge: patient is progressing back to baseline - Diet and Activity Activity: increase activity as tolerated Diet: advance to your usual diet - Attending Attestation I have personally performed a face to face evaluation on this patient. I have reviewed and agree with the care plan. History and Exam by me shows:
[2018-04-16] MEDS: *HR* OxyCODONE/APAP 5/325 TABLET PO PRN ×2 (15:46→20:48)
[2018-04-16] MEDS: Ketorolac 30 MG/ML VIAL IVP PRN (17:45)
[2018-04-16] MEDS: *HR* Promethazine 25 MG/ML VIAL IVP PRN (17:48)
[2018-04-17] MEDS: Ketorolac 30 MG/ML VIAL IVP PRN (01:10)
[2018-04-17] MEDS: 0.9 % Sodium Chloride 1,000 ML IVC SCH (01:24)
[2018-04-17] MEDS: *HR* Promethazine 25 MG/ML VIAL IVP PRN ×2 (02:53→18:04)
[2018-04-17] MEDS: *HR* OxyCODONE/APAP 5/325 TABLET PO PRN ×3 (04:05→16:28)
[2018-04-17] MEDS: Ipratropium/Albuterol Neb 3 ML IH SCH ×3 (04:09→11:41)
[2018-04-17] MEDS: Acetaminophen IV 1,000 MG/100 ML INFUS..BTL IVPB SCH ×2 (05:14→12:08)
[2018-04-17 06:51] LABS: Basophils % 0.4 %; Eosinophils # 0.2 K/mcL (0.0-0.6); Eosinophils % 1.9 %; Hematocrit 33.6 % (35.3-44.9); Immature Granulocytes % 0.6 % (0-4); Lymphocytes # 1.4 K/mcL (0.6-4.6); Lymphocytes % 16.9 %; Mean Corpuscular HGB Conc 32.7 g/dL (31.6-35.5); Mean Corpuscular Hemoglobin 31.6 pg (28.0-33.3); Mean Corpuscular Volume 96.6 fL (83.0-100.0); Mean Platelet Volume 10.2 fL (9.4-12.4); Monocytes # 0.6 K/mcL (0.0-1.3); Neutrophils # 5.9 K/mcL (1.6-8.9); Platelet Count 202 K/mcL (140-400); Red Blood Count 3.48 M/mcL (3.82-4.97); Red Cell Distribution Width 12.5 % (11.5-14.5); Segmented Neutrophils % 73.2 %
[2018-04-17] MEDS ORDERED: Ketorolac 30 MG/ML VIAL IVP ONE (08:40)
[2018-04-17] MEDS: Biotin [Biotin] 1 MG PO SCH (09:06)
[2018-04-17] MEDS: Piperacillin/Tazobactam 3.375 GM in 0.9 % Sodium Chloride Mini Bag 100 ML IVPB SCH (09:06)
[2018-04-17] MEDS ORDERED: Albuterol Neb 0.63 MG/3 ML VIAL IH SCH (12:30)
--- NOTE | 2018-04-17 12:43 | General Surgery Progress Note ---
Date of Encounter: 04/17/18 Time of Encounter: 12:32 - Assessment and Plan (1) Acute appendicitis Current Visit: Yes Status: Resolved Date of procedure: 04/14/18 Pre-op diagnosis: acute appendicitis Post-op diagnosis: other (Perforated appendicitis with abscess) Procedure: Laparoscopic appendectomy; 19F sharonda drain placement Complications: none immediate POD# 2 as above. Patient was to be discharged this am; however, when ACCOUNTING CONSULTANT entered room to reviewed D/c instructions, patient stated she had independently replaced her O2 because she felt short of breath. She reported a cough with which she had difficulty clearing sputum due to pain. She was recommended to continue deep breathing, provided with IV toradol (which she refused) and a percocet. The bedside RN was asked to check saturations and the patient then had a walk test and noted drops into the 70s on RA. A repeat CXR (pa and lat) was obtained which noted expected pleural effusions and new appearance of opacities. Plan: Continue hospital care for IV antibiotics, aggressive pulm toileting, mucomyst, accupap, symbicort, and a spacer Continue regular diet continue supportive care and discomfort management GI and DVt prophylaxis strongly encouraged ambulation at least TID Out of bed to chair for all trays Reinforced the need for IS and RT treatments as above. Reviewed with patient and family above. Patient verbalizes understanding and adherence Qualifiers: Acute appendicitis type: with localized peritonitis Qualified Code(s): K35.3 - Acute appendicitis with localized peritonitis (2) COPD (chronic obstructive pulmonary disease) Current Visit: Yes Status: Chronic acute on chronic exacerbation vs postoperative atalectasis. CXR on admission noted no acute findings and stable mild hyperinflation. As noted under cough, she reported an outpatient cough for which she was taking a Z -pack. Patient was to be discharged this am; however, when ACCOUNTING CONSULTANT entered room to reviewed D/c instructions, patient stated she had independently replaced her O2 because she felt short of breath. She reported a cough with which she had difficulty clearing sputum due to pain. She was recommended to continue deep breathing, provided with IV toradol (which she refused) and a percocet. The bedside RN was asked to check saturations and the patient then had a walk test and noted drops into the 70s on RA. A repeat CXR (pa and lat) was obtained which noted expected pleural effusions and new appearance of opacities. Plan: Continue hospital care for IV antibiotics (switch to Levaquin and flagyl for additonal pulmonary coverage), aggressive pulm toileting, mucomyst, accupap, symbicort, and a spacer strongly encouraged ambulation at least TID Out of bed to chair for all trays Reinforced the need for IS and RT treatments as above. Reviewed with patient and family above. Patient verbalizes understanding and adherence Qualifiers: COPD type: unspecified COPD Qualified Code(s): J44.9 - Chronic obstructive pulmonary disease, unspecified (3) Cough Current Visit: Yes Status: Acute See a/p above. Acute on chronic COPD exacerbation versus postoperative atelectasis versus community acquired pneumonia. (4) Cholelithiasis Current Visit: Yes Status: Acute Qualifiers: Cholelithiasis location: gallbladder Cholecystitis presence: without cholecystitis Biliary obstruction: without biliary obstruction Qualified Code(s): K80.20 - Calculus of gallbladder without cholecystitis without obstruction (5) Fever Current Visit: Yes Status: Acute T-max this admission 101.1 oral. Most recent 99.0 Continue scheduled ofirmev and toradol Qualifiers: Fever type: unspecified Qualified Code(s): R50.9 - Fever, unspecified Subjective Narrative: Abdominal soreness, SOB with deep breathing, cramping with the drain. Objective Vital Signs - Last 8 Hours Temp Pulse Resp BP Pulse Ox 04/17/18 11:43 16 89 04/17/18 11:28 88 04/17/18 10:58 99.0 F 83 16 125/73 88 04/17/18 07:18 98.5 F 81 16 148/72 94 Intake and Output 04/16/18 04/17/18 04/17/18 23:59 07:59 15:59 Intake Total 200 / 200 1200 / 1200 120 / 120 Output Total 530 / 530 860 / 860 255 / 255 Balance -330 / -330 340 / 340 -135 / -135 Intake: IV Fluids 200 / 200 1200 / 1200 0.9 % Sodium Chloride 1,000 ML 1000 / 1000 @ 75 mls/hr IVC .[id number] KIKI Rx #:[id number] Ofirmev 1,000 mg/100 ml 1,000 100 / 100 100 / 100 mg In 100 ml @ 400 mls/hr IVPB Q6HR KIKI Rx#:[id number] Zosyn 3.375 GM In 0.9 % Sodium 100 / 100 100 / 100 Chloride (Mini-Bag +) 100 ML @ 25 mls/hr IVPB Q8HR KIKI Rx#: [id number] Oral 0 / 0 120 / 120 Output: Urine 350 / 350 600 / 600 100 / 100 Wound Drainage 180 / 180 260 / 260 155 / 155 Left Lower Abdomen 180 / 180 260 / 260 155 / 155 Other: Meal Breakfast Percent of Meal Consumed 0% # Voids 1 - General physical appearance no distress, moderate pain, other - ENT atraumatic, normocephalic - Neck Neck exam: trachea midline - Respiratory other (Decreased, course, tight) - Cardiovascular Cardiovascular exam: Present: RRR - Abdomen Abdomen: Present: bowel sounds present, soft, tender, wound (TOBIAS drain with Serous output) Hernia: none - Incision Incision: Present: clean and dry, intact - Integumentary no rash, no growths - Neurologic normal coordination, normal sensation - Musculoskeletal normal posture - Psychiatric oriented to time, oriented to person, oriented to place - Labs 04/17/18 06:26 04/16/18 04:50 - VTE Documentation of Mechanical Device: Intermittent pneumatic compression device Consult Discharge Plan - Plan Instructions: Chirag-Parham Drain Care (DC), Laparoscopic Appendectomy (DC) Additional Instructions: General Surgical Discharge Instructions 1. No pushing, pulling, or lifting greater than 15 lbs for 4 weeks (depending upon procedure). 2. You may shower beginning today, but no tub baths, soaking, or swimming for 2 weeks. 3. You may resume driving when you are off narcotics and are safe to react in a car. 4. You may take 650 mg Tylenol by mouth every 6 hours (I recommend alternating this with the if needed Percocet). If this does not relieve your pain, you may take the as needed Percocet every 6 hours. Do not exceed more than 4 g of acetaminophen daily. Take narcotics as directed. Do not take more narcotics then directed and do not share your narcotics with any other person. Do not drink alcohol while on narcotics. 5. Take stool softeners (Colace) or a water based laxative (Miralax) while taking narcotics. You may hold for loose stools. 6. Report any fevers greater than 100.5F, increase abdominal discomfort, drainage that looks like pus, increased redness or pain at the surgical site, or any vomiting. 7. Report any pain in the calves, shortness of breath, or rapid heartbeat. 8. Follow-up in the office as directed. 9. If you were prescribed antibiotics, do not stop them without talking to your provider. 10. Do not drink alcohol while taking metronidazole. Doing so can cause violent vomiting and abdominal pain. Refrain from alcohol for 48 hours after completing metronidazole. Daily TOBIAS Drain Care: 1. Remove dressings. Shower with antibacterial soap. 2. Do not let the TOBIAS drain dangle from your body. Use the safety pin to secure to your clothing. Secure the TOBIAS to a lanyard or other type of long necklace when you shower. 3. Replace drain gauze and taped to secure. 4. Record the output from your TOBIAS bulb (at least once daily) on the form provided and bring this with you to your follow-up appointment. 5. Keep the TOBIAS drain to suction (squeeze the bulb and replace the cap while squeezing). 6. Strip the lines twice daily (hold onto the line as close to the body as you can, then with the other hand push the contents of the line into the TOBIAS bulb). Referrals: Naya Stoner CNP [Advanced Practice Nurse] - 04/24/18 2:00 pm Prescriptions: Ondansetron ODT [Zofran ODT] 4 mg SL Q4HR PRN #15 tab.rapdis PRN Reason: Nausea OxyCODONE/APAP 5/325 [Percocet 5/325 MG] 1 each PO Q6HR PRN 7 Days #28 tablet PRN Reason: Pain Ciprofloxacin HCl [Cipro] 500 mg PO BID 7 Days #14 tablet Docusate Sodium [Colace] 100 mg PO BID 14 Days #30 capsule GuaiFENesin/Dextromethorphan [Mucinex DM] 1 each PO BID #14 tab.er.12h metroNIDAZOLE [Flagyl] 500 mg PO TID 7 Days #21 tablet
[2018-04-17] MEDS ORDERED: Acetylcysteine 10% 2 ML INHSOL IH SCH (12:45)
[2018-04-17] MEDS ORDERED: Levofloxacin 750 MG/150 ML 750 MG/150 ML BAG IVPB SCH (13:00)
[2018-04-17] MEDS: OXYCODONE Oral CONC 10 MG/0.5 ML ORAL.SYG SL PRN ×3 (13:22→23:02)
[2018-04-17] MEDS: Albuterol Neb 1.25 MG/3 ML VIAL IH SCH ×4 (15:04→23:11)
[2018-04-17] MEDS: Acetylcysteine 10% 2 ML INHSOL IH SCH ×3 (15:06→23:11)
[2018-04-17] MEDS: MetroNIDAZOLE 500 MG/100 ML 500 MG/100 ML BAG IVPB SCH (16:28)
[2018-04-17] MEDS: Acetaminophen IV 500 MG/50 ML INFUS..BTL IVPB SCH ×2 (18:48→23:51)
[2018-04-17] MEDS: Budesonide/Formoterol 80/4.5 MDI IH SCH (20:30)
[2018-04-17] MEDS: Ketorolac 15 MG/ML VIAL IVP SCH (20:39)
[2018-04-18] MEDS: MetroNIDAZOLE 500 MG/100 ML 500 MG/100 ML BAG IVPB SCH ×2 (00:17→08:57)
[2018-04-18] MEDS: Ketorolac 15 MG/ML VIAL IVP SCH ×3 (00:17→11:28)
[2018-04-18] MEDS: Acetylcysteine 10% 2 ML INHSOL IH SCH (03:49)
[2018-04-18] MEDS: Albuterol Neb 1.25 MG/3 ML VIAL IH SCH ×3 (03:49→11:26)
[2018-04-18] MEDS: Acetaminophen IV 500 MG/50 ML INFUS..BTL IVPB SCH (05:25)
[2018-04-18 06:06] LABS: Basophils % 0.5 %; Eosinophils # 0.3 K/mcL (0.0-0.6); Eosinophils % 5.1 %; Hematocrit 36.4 % (35.3-44.9); Hemoglobin 12.1 g/dL (11.5-15.4); Immature Granulocytes % 0.3 % (0-4); Lymphocytes # 1.8 K/mcL (0.6-4.6); Lymphocytes % 30.8 %; Mean Corpuscular HGB Conc 33.2 g/dL (31.6-35.5); Mean Corpuscular Hemoglobin 32.4 pg (28.0-33.3); Mean Corpuscular Volume 97.6 fL (83.0-100.0); Mean Platelet Volume 9.8 fL (9.4-12.4); Monocytes # 0.4 K/mcL (0.0-1.3); Monocytes % 7.2 %; Neutrophils # 3.3 K/mcL (1.6-8.9); Platelet Count 217 K/mcL (140-400); Red Blood Count 3.73 M/mcL (3.82-4.97); Red Cell Distribution Width 12.3 % (11.5-14.5); Segmented Neutrophils % 56.1 %
[2018-04-18 06:22] LABS: BUN/Creatinine Ratio 15 (6-26); Blood Urea Nitrogen 10 mg/dL (8-23); Carbon Dioxide 21 mEq/L (23-29); Chloride 108 mEq/L (98-107); Glucose 77 mg/dL (70-105); Osmolality,Calculated 280 (280-300); Potassium 3.9 mEq/L (3.5-5.1); Sodium 136 mEq/L (136-145); eGFR For African Americans > 60 (> 60); eGFR For Non-African Americans > 60 (> 60)
[2018-04-18 06:47] VITALS: BP 110/69
[2018-04-18] MEDS: OXYCODONE Oral CONC 10 MG/0.5 ML ORAL.SYG SL PRN (06:52)
[2018-04-18] MEDS: Budesonide/Formoterol 80/4.5 MDI IH SCH (07:38)
[2018-04-18] MEDS: Biotin [Biotin] 1 MG PO SCH (08:58)
[2018-04-18] MEDS: *HR* OxyCODONE/APAP 5/325 TABLET PO PRN (09:00)
--- NOTE | 2018-04-18 09:00 | Discharge Summary ---
- NOTES TO OUTPATIENT PROVIDER Notes to Outpatient Provider: PCP: Please note patient had new requirement for supplemental oxygen. She was provided with a 30-day prescription as well as COPD treatment. Orders not resulted at time of discharge: Pending orders 04/14/18 19:33 Surgical Pathology [PTH] Routine Date of Encounter: 04/18/18 Time of Encounter: 09:02 - Discharge Diagnosis (1) Acute appendicitis Priority: Primary Status: Resolved Qualifiers: Acute appendicitis type: with localized peritonitis Qualified Code(s): K35.3 - Acute appendicitis with localized peritonitis (2) COPD (chronic obstructive pulmonary disease) Priority: Secondary Status: Chronic Qualifiers: COPD type: unspecified COPD Qualified Code(s): J44.9 - Chronic obstructive pulmonary disease, unspecified (3) Cough Priority: Secondary Status: Acute (4) Cholelithiasis Priority: Secondary Status: Acute Qualifiers: Cholelithiasis location: gallbladder Cholecystitis presence: without cholecystitis Biliary obstruction: without biliary obstruction Qualified Code(s): K80.20 - Calculus of gallbladder without cholecystitis without obstruction (5) Fever Priority: Secondary Status: Acute Qualifiers: Fever type: unspecified Qualified Code(s): R50.9 - Fever, unspecified General Surgery Exam Initial Vital Signs Resp Pulse Ox 16 100 04/14/18 15:29 04/14/18 15:29 Vital Signs Temp Pulse Resp BP Pulse Ox 04/18/18 07:44 18 88 04/18/18 06:45 98.6 F 64 17 110/69 94 04/18/18 04:14 98.0 F 81 16 102/61 95 04/18/18 03:49 16 95 04/17/18 23:11 16 96 04/17/18 23:00 98.2 F 84 16 110/59 94 04/17/18 19:58 18 98 04/17/18 19:40 94 04/17/18 18:46 98.6 F 85 15 114/74 94 04/17/18 16:02 97.5 F L 99 16 96/68 91 04/17/18 11:43 16 89 04/17/18 11:28 88 04/17/18 10:58 99.0 F 83 16 125/73 88 Intake and Output 04/17/18 04/18/18 04/18/18 23:59 07:59 15:59 Intake Total 460 / 460 270 / 270 Output Total 315 / 315 510 / 510 Balance 145 / 145 -240 / -240 Intake: IV Fluids 100 / 100 150 / 150 Ofirmev 1,000 mg/100 ml 500 mg 50 / 50 In 50 ml @ 200 mls/hr IVPB Q6H KIKI Rx#:[id number] Flagyl Premix 500 MG/100 ML 500 100 / 100 100 / 100 mg In 100 ml @ 100 mls/hr IVPB Q8HR KIKI Rx#:[id number] Oral 360 / 360 120 / 120 Output: Urine 0 / 0 300 / 300 Wound Drainage 315 / 315 210 / 210 Left Lower Abdomen 315 / 315 210 / 210 Other: Meal Dinner Percent of Meal Consumed 5% # Voids 1 1 Weight 63.4 kg Patient Weight 04/18/18 23:59 Weight 63.4 kg VITAL SIGNS: Reviewed. See [facility] GENERAL: In no apparent distress. HEENT: Normocephalic, atraumatic, pupils are equal and reactive, extraocular motions intact, oropharynx is pink and moist, there is no neck adenopathy or JVD noted. CHEST/RESPIRATORY: The thorax is free from signs of trauma. Lung sounds: decreased. Much improved from yesterday. On room air today. CARDIAC: Regular rate and rhythm. Normal S1 and S2, without murmurs, gallops, or rubs. VASCULAR: No Edema. 2+ peripheral pulses. ABDOMEN: soft, expected postoperative tenderness, hypoactive bowel sounds INCISION: Surgical incision is clean, dry, and intact. There are no signs of cellulitis or infection noted. WOUNDS/DRAINS: TOBIAS drain within normal limits. 100 ML serous drainage emptied. MUSCULOSKELETAL: Good range of motion of all major joints. Extremities without clubbing, cyanosis or edema. NEUROLOGIC EXAM: Alert and oriented x 3. Speech normal. Follows commands. PSYCHIATRIC: Mood normal. SKIN: No rash or lesions. - Hospital Course Hospital course: Ms. Vincent is a 63 year old female admitted amarilys with appendicitis. She went to the OR that same day for a laparoscopic appendectomy. Patient had perforated appendicitis with abscess. Pk drain in place. Post op recovery a little slow due to pain. WBC came down to normal pod 2. Tolerating regular diet. Pain controlled with po medication. TOBIAS drain with serous drainage. Afebrile, vitals stable. Patient was to be discharged 04/17; however, when [employer] entered room to reviewed D/ c instructions, patient stated she had independently replaced her O2 because she felt short of breath. She reported a cough with which she had difficulty clearing sputum due to pain. She was recommended to continue deep breathing, provided with IV toradol (which she refused) and a percocet. The bedside RN was asked to check saturations and the patient then had a walk test and noted drops into the 70s on RA. A repeat CXR (pa and lat) was obtained which noted expected pleural effusions and new appearance of opacities. She was supported with RT treatments, Mucomyst, and her antibiotics were changed. She states today she is feeling much better. Her vital signs are stable she is saddening 91% on room air. We will begin discharge planning to home with a follow-up in the office in one week with the nurse practitioner and with the patient to follow- up with her PCP within one to 2 weeks. She is advised to continue the Symbicort , continue incentive spirometry, complete abstinence from smoking, intake medications as directed. Time spent discussing smoking cessation with patient: 3 to 10 minutes - Time Spent with Patient Total time spent providing and/or coordinating discharge services: - Discharge Medications Prescriptions: Ondansetron ODT [Zofran ODT] 4 mg SL Q4HR PRN #15 tab.rapdis PRN Reason: Nausea OxyCODONE/APAP 5/325 [Percocet 5/325 MG] 1 each PO Q6HR PRN 7 Days #28 tablet PRN Reason: Pain Budesonide/Formoterol 80/4.5 [Symbicort 80/4.5] 2 puff IH BID #1 hfa.aer.ad Docusate Sodium [Colace] 100 mg PO BID 14 Days #30 capsule GuaiFENesin/Dextromethorphan [Mucinex DM] 1 each PO BID #14 tab.er.12h levoFLOXacin [Levaquin] 750 mg PO DAILY #14 tablet metroNIDAZOLE [Flagyl] 500 mg PO TID 7 Days #21 tablet Home Medications: Biotin 1 mg PO DAILY 04/15/18 [History] Docusate Sodium [Colace] 100 mg PO BID 14 Days #30 capsule 04/17/18 [Rx] GuaiFENesin/Dextromethorphan [Mucinex DM] 1 each PO BID #14 tab.er.12h 04/17/18 [Rx] Ondansetron ODT [Zofran ODT] 4 mg SL Q4HR PRN #15 tab.rapdis 04/17/18 [Rx] OxyCODONE/APAP 5/325 [Percocet 5/325 MG] 1 each PO Q6HR PRN 7 Days #28 tablet [Rx] metroNIDAZOLE [Flagyl] 500 mg PO TID 7 Days #21 tablet 04/17/18 [Rx] Budesonide/Formoterol 80/4.5 [Symbicort 80/4.5] 2 puff IH BID #1 hfa.aer.ad 01/01 [Rx] levoFLOXacin [Levaquin] 750 mg PO DAILY #14 tablet 04/18/18 [Rx] Allergies/Adverse Reactions: 3 Allergy/AdvReac Type Severity Reaction Status Date / Time NSAIDS (Non-Steroidal AdvReac See Verified 04/15/18 14:17 Anti-Inflamma Comments Date of admission: 04/14/18 14:09 Primary care physician: Lorna Guerra, [employer] [employer] Consults: 04/17/18 12:29 Consult to Respiratory Therapy [CONS] Routine Reason for Consult: Aggressive pulm toileting, Accupap TXs Time Notified: 12:30 Call Completed: Yes Discharging clinician: Idalia Aguilar Labs on day of discharge: Labs from last 24 hours 04/18/18 04/18/18 05:43 05:43 WBC 5.9 RBC 3.73 L Hgb 12.1 Hct 36.4 MCV 97.6 MCH 32.4 MCHC 33.2 RDW 12.3 Plt Count 217 MPV 9.8 Immature Gran % 0.3 Seg Neutrophils % 56.1 Lymphocytes % 30.8 Monocytes % 7.2 Eosinophils % 5.1 Basophils % 0.5 Neutrophils # 3.3 Lymphocytes # 1.8 Monocytes # 0.4 Eosinophils # 0.3 Basophils # 0.0 Sodium 136 Potassium 3.9 Chloride 108 H Carbon Dioxide 21 L BUN 10 Creatinine 0.67 Est GFR ( Amer) > 60 Est GFR (Non-Af Amer) > 60 BUN/Creatinine Ratio 15 Glucose 77 Calculated Osmolality 280 Calcium 8.0 L - Impressions ITS Impressions Chest X-Ray 04/14/18 14:47 IMPRESSION: No acute finding in the chest. Stable mild hyperinflation may indicate underlying COPD. D/ / Clayton Sow MD / Clayton Sow MD Interpreting Provider: Clayton Sow MD Chest X-Ray 04/17/18 11:39 IMPRESSION: 1. Interval appearance of bibasilar opacities and bilateral effusions, right greater than left. D/ / 04/17/2018 13:24:44 Danelle Pace MD / marily Interpreting Provider: Danelle Pace MD - Patient Status Disposition: Home, Self-Care Condition: Good Functional capacity at discharge: independent ambulation Overall status at discharge: patient is progressing back to baseline - Discharge Instructions Instructions: Chirag-Parham Drain Care (DC), Laparoscopic Appendectomy (DC), Chronic Obstructive Pulmonary Disease (DC), How to Stop Smoking (DC), Cigarette Smoking and Your Health (GEN) Follow Up With: Naya Stoner CNP [Advanced Practice Nurse] - 04/24/18 2:00 pm Lorna Guerra CNP [Primary Care Provider] - (1-2 weeks after d/c) Additional Instructions: General Surgical Discharge Instructions 1. No pushing, pulling, or lifting greater than 15 lbs for 4 weeks (depending upon procedure). 2. You may shower beginning today, but no tub baths, soaking, or swimming for 2 weeks. 3. You may resume driving when you are off narcotics and are safe to react in a car. 4. You may take 650 mg Tylenol by mouth every 6 hours (I recommend alternating this with the if needed Percocet). If this does not relieve your pain, you may take the as needed Percocet every 6 hours. Do not exceed more than 4 g of acetaminophen daily. Take narcotics as directed. Do not take more narcotics then directed and do not share your narcotics with any other person. Do not drink alcohol while on narcotics. 5. Take stool softeners (Colace) or a water based laxative (Miralax) while taking narcotics. You may hold for loose stools. 6. Report any fevers greater than 100.5F, increase abdominal discomfort, drainage that looks like pus, increased redness or pain at the surgical site, or any vomiting. 7. Report any pain in the calves, shortness of breath, or rapid heartbeat. 8. Follow-up in the office as directed. 9. If you were prescribed antibiotics, do not stop them without talking to your provider. 10. Do not drink alcohol while taking metronidazole. Doing so can cause violent vomiting and abdominal pain. Refrain from alcohol for 48 hours after completing metronidazole. 11. Use the Symbicort with spacer twice daily. Do not stop until directed to do so by your PCP. Rinse your mouth with water after EVERY use of symbicort. Daily TOBIAS Drain Care: 1. Remove dressings. Shower with antibacterial soap. 2. Do not let the TOBIAS drain dangle from your body. Use the safety pin to secure to your clothing. Secure the TOBIAS to a lanyard or other type of long necklace when you shower. 3. Replace drain gauze and taped to secure. 4. Record the output from your TOBIAS bulb (at least once daily) on the form provided and bring this with you to your follow-up appointment. 5. Keep the TOBIAS drain to suction (squeeze the bulb and replace the cap while squeezing). 6. Strip the lines twice daily (hold onto the line as close to the body as you can, then with the other hand push the contents of the line into the TOBIAS bulb). - Diet and Activity Activity: increase activity as tolerated, other (wear oxygen when you are up and walking until seen by your PCP) Diet: advance to your usual diet
[2018-04-18] MEDS ORDERED: Simethicone 80 MG TAB.CHEW PO PRN (09:07)
== END 2018-04-18 11:39 | disposition home or self-care (01) ==
LOC: 3ANU
PROVIDERS: ADMIT Surgery; ATTEND Surgery

== ENCOUNTER 2018-04-20 12:57 | Inpatient (IN) ==
[2018-04-20] MEDS ORDERED: *HR* FentaNYL (PF) 100 MCG/2 ML VIAL IVP ONE ×2 (13:06→14:29)
[2018-04-20] MEDS ORDERED: Isovue-370 500 ML INFUS..BTL IV ONE (13:06)
[2018-04-20] MEDS ORDERED: 0.9 % Sodium Chloride 1,000 ML IVC ONE (13:06)
--- NOTE | 2018-04-20 13:10 | Emergency Department Note ---
Disposition Clinical Impression: Postoperative ileus Pneumonia Qualifiers: Pneumonia type: due to unspecified organism Laterality: bilateral Lung location : lower lobe of lung Qualified Code(s): J18.1 - Lobar pneumonia, unspecified organism Disposition: Admitted As Inpatient Condition: Undetermined Referrals: Lorna Guerra CNP [Primary Care Provider] - Forms: ED Satisfaction Letter, Work/School Release Time of Disposition: 14:27 Abdominal Pain HPI - General Chief Complaint: ED Abdominal Pain Stated Complaint: abdominal pain- recent cholecystectomy Time Seen by Provider: 04/20/18 13:00 Source: patient, EMS Mode of arrival: EMS Limitations: no limitations Nursing Notes Reviewed: Yes Vital Signs Reviewed: Yes - History of Present Illness HPI Narrative: 63-year-old female that is status post appendectomy roughly 1 week ago arrives to the emergency department complaining of worsening abdominal pain, generalized weakness, nausea, vomiting. The patient states that her pain and right lower quadrant radiating to left lower quadrant is worsened. The patient states she is not able to eat. She admits to fevers and chills. The patient apparently had a ruptured appendix at that time. She had surgical intervention. She was left with a TOBIAS drain in her left lower quadrant. The patient states that she was also sent home on Levaquin which she has been taking. She denies any other complaints at this time. She is very uncomfortable in the room. Family members are partially providing history. Pain Scale: 10 - Related Data Home Medications Medication Instructions Recorded Confirmed Biotin 1 mg PO DAILY 04/15/18 04/15/18 Previous Rx's Medication Instructions Recorded Docusate Sodium [Colace] 100 mg PO BID 14 Days #30 capsule 04/17/18 GuaiFENesin/Dextromethorphan 1 each PO BID #14 tab.er.12h 04/17/18 [Mucinex DM] Ondansetron ODT [Zofran ODT] 4 mg SL Q4HR PRN #15 tab.rapdis 04/17/18 OxyCODONE/APAP 5/325 [Percocet 1 each PO Q6HR PRN 7 Days #28 04/17/18 5/325 MG] tablet metroNIDAZOLE [Flagyl] 500 mg PO TID 7 Days #21 tablet 04/17/18 Budesonide/Formoterol 80/4.5 2 puff IH BID #1 hfa.aer.ad 04/18/18 [Symbicort 80/4.5] levoFLOXacin [Levaquin] 750 mg PO DAILY #14 tablet 04/18/18 Allergies Allergy/AdvReac Type Severity Reaction Status Date / Time NSAIDS (Non-Steroidal AdvReac See Verified 04/15/18 14:17 Anti-Inflamma Comments All systems ED: reviewed and negative except as stated. Constitutional: Reports: fever, chills, weakness ENT ED: Denies: congestion Cardiovascular: Denies: chest pain Respiratory: Denies: dyspnea Gastrointestinal: Reports: abdominal pain, nausea, vomiting. Denies: diarrhea, constipation, hematemesis, melena, hematochezia Genitourinary: Reports: dysuria. Denies: urgency, frequency, hematuria, discharge, abnormal menses Musculoskeletal: Denies: back pain, neck pain Integumentary: Denies: rash Neurological: Reports: weakness. Denies: headache, numbness, paresthesias, confusion Abdominal Pain PMH - Past Medical History Medical history: Reports: no medical history, other Female Surgical History: Reports: appendectomy [employer] history: Reports: non-contributory Psychiatric history: Reports: no psych history - Social History Smoking status: Current some day smoker Alcohol use: Reports: rarely Drug use: Reports: none Physical Exam - General Limitations: no limitations General appearance: alert, in distress (Due to pain) - Head Head exam: atraumatic, normocephalic, normal inspection - Eye Eye exam: Present: normal appearance, PERRL, EOMI - ENT ENT exam: normal exam, normal oropharynx, mucous membranes moist - Neck Neck exam: Present: normal inspection, full ROM, trachea midline - Chest Chest inspection: Present: normal inspection, symmetric chest wall rise - Respiratory Respiratory exam: Present: normal lung sounds bilaterally - Cardiovascular Cardiovascular exam: Present: regular rate, normal rhythm, normal heart sounds - Abdominal Exam Abdominal exam: Present: soft, tenderness (RLQ, LLQ), guarding, incision (intact ), other (TOBIAS drain in place draining roughly 50 mL of serosanguineous fluid.). Absent: distention, rebound, rigidity, Lubin's sign, Rovsing's sign, tenderness at McBurney's Point - Extremities Exam Extremities exam: Present: normal inspection, full ROM. Absent: tenderness, pedal edema - Neurological Exam Neurological exam: Present: alert, oriented X3 - Skin Skin exam: Present: warm, dry, intact, normal color Course Vital Signs Temperature 97.8 F 04/20/18 13:01 Pulse Rate 93 04/20/18 13:01 Respiratory Rate 20 04/20/18 13:01 Blood Pressure 114/82 04/20/18 13:01 O2 Sat by Pulse Oximetry 95 04/20/18 13:01 Temperature 97.8 F 04/20/18 13:01 Pulse Rate 84 04/20/18 14:19 Respiratory Rate 18 04/20/18 14:19 Blood Pressure 124/70 04/20/18 14:19 O2 Sat by Pulse Oximetry 97 04/20/18 14:19 Oxygen Delivery Oxygen Delivery Nasal Cannula Abdominal Pain - MDM Narrative Medical decision making narrative: Patient CT scan demonstrates findings concerning for small bowel structure versus ileus. In addition the patient has atelectatic changes in bilateral lower lobes. Given the patient's recent surgery and findings, we will start the patient on Zosyn as well as vancomycin with concern for possible hospital acquired pneumonia. Surgery was called, Dr. Royal, who requested a Clostridium difficile culture. And requested admission to her service. No further recommendations at this time. We will admit the patient to hospital. Family and patient made aware. - Medical Records Medical records reviewed: Yes I reviewed the patient's medical records. - Lab Data Lab results reviewed: Yes I reviewed the patient's lab results. Result diagrams: 04/20/18 13:23 04/20/18 13:23 Lab Results 04/20/18 04/20/18 04/20/18 Range/Units 13:23 13:23 13:23 WBC 8.2 (4.3-11.1) K/mcL RBC 4.26 (3.82-4.97) M/mcL Hgb 13.5 (11.5-15.4) g/dL Hct 40.5 (35.3-44.9) % MCV 95.1 (83.0-100.0) fL MCH 31.7 (28.0-33.3) pg MCHC 33.3 (31.6-35.5) g/dL RDW 12.3 (11.5-14.5) % Plt Count 294 (140-400) K/mcL MPV 10.1 (9.4-12.4) fL Immature Gran % 0.6 (0-4) % Seg Neutrophils % 81.3 % Lymphocytes % 9.9 % Monocytes % 6.1 % Eosinophils % 1.7 % Basophils % 0.4 % Neutrophils # 6.6 (1.6-8.9) K/mcL Lymphocytes # 0.8 (0.6-4.6) K/mcL Monocytes # 0.5 (0.0-1.3) K/mcL Eosinophils # 0.1 (0.0-0.6) K/mcL Basophils # 0.0 (0.0-0.2) K/mcL Sodium 135 L (136-145) mEq/L Potassium 4.0 (3.5-5.1) mEq/L Chloride 102 (98-107) mEq/L Carbon Dioxide 22 L (23-29) mEq/L BUN 8 (8-23) mg/dL Creatinine 0.61 (0.60-1.20) mg/dL Est GFR ( Amer) > 60 (> 60) Est GFR (Non-Af Amer) > 60 (> 60) BUN/Creatinine Ratio 13 (6-26) Glucose 76 (70-105) mg/dL Calculated Osmolality 277 L (280-300) Lactic Acid 0.8 (0.5-2.2) mmol/L Calcium 8.5 L (8.6-10.3) mg/dL Total Bilirubin 0.2 L (0.3-1.0) mg/dL AST 17 (13-39) Units/L ALT 11 (7-52) Units/L Alkaline Phosphatase 63 (34-104) Units/L Troponin I < 0.03 (< 0.04) ng/mL Serum Total Protein 5.9 L (6.4-8.9) g/dL Albumin 3.0 L (3.5-5.7) g/dL Globulin 2.9 (2.4-3.5) g/dL Albumin/Globulin Ratio 1.0 L (1.1-2.2) - Radiology Data Radiology results reviewed: Yes I reviewed the patient's radiology results. Abdomen/Pelvis CT 04/20/18 13:06 IMPRESSION: 1. Findings suggest the diagnosis of small bowel obstruction without perforation. 2. Mild ascites in the abdomen or pelvis. 3. Mild bilateral pleural effusions and lower lobe atelectatic changes. D/ / Mikayla Arguelles MD / Mikayla Arguelles MD Interpreting Provider: Mikayla Arguelles MD - EKG Data EKG attestation: Yes I reviewed and interpreted this EKG. EKG results narrative: Heart rate 93 beats for minute. Normal sinus rhythm. No ST elevation or ST depression noted. PVCs noted on EKG. No acute changes noted.
--- NOTE | 2018-04-20 13:15 | Emergency Department Note ---
Disposition Clinical Impression: Postoperative ileus, Pneumonia Disposition: Admitted As Inpatient Condition: Undetermined General Adult HPI - General Chief complaint: ED Abdominal Pain Stated complaint: abdominal pain- recent cholecystectomy Time Seen by Provider: 04/20/18 13:00 Source: patient, EMS Mode of arrival: EMS Limitations: no limitations - History of Present Illness Pain Scale: 10 - Related Data Home Medications Medication Instructions Recorded Confirmed Acetaminophen [Non-Aspirin] 325 mg PO DAILY PRN 04/20/18 04/20/18 levoFLOXacin [Levaquin] 750 mg PO DAILY 04/20/18 04/20/18 Previous Rx's Medication Instructions Recorded Docusate Sodium [Colace] 100 mg PO BID 14 Days #30 capsule 04/17/18 GuaiFENesin/Dextromethorphan 1 each PO BID #14 tab.er.12h 04/17/18 [Mucinex DM] Ondansetron ODT [Zofran ODT] 4 mg SL Q4HR PRN #15 tab.rapdis 04/17/18 OxyCODONE/APAP 5/325 [Percocet 1 each PO Q6HR PRN 7 Days #28 04/17/18 5/325 MG] tablet metroNIDAZOLE [Flagyl] 500 mg PO TID 7 Days #21 tablet 04/17/18 Budesonide/Formoterol 80/4.5 2 puff IH BID #1 hfa.aer.ad 04/18/18 [Symbicort 80/4.5] Allergies Allergy/AdvReac Type Severity Reaction Status Date / Time NSAIDS (Non-Steroidal AdvReac See Verified 04/15/18 14:17 Anti-Inflamma Comments Constitutional: Reports: fever, chills, weakness ENT ED: Denies: congestion Cardiovascular: Denies: chest pain Respiratory: Denies: dyspnea Gastrointestinal: Reports: abdominal pain, nausea, vomiting. Denies: diarrhea, constipation, hematemesis, melena, hematochezia Genitourinary: Reports: dysuria. Denies: urgency, frequency, hematuria, discharge, abnormal menses Musculoskeletal: Denies: back pain, neck pain Integumentary: Denies: rash Neurological: Reports: weakness. Denies: headache, numbness, paresthesias, confusion Past Medical History - Past Medical History Medical history: Reports: no medical history, other Surgical history: Reports: other (Gastric sleeve 2010) Psychiatric history: Reports: no psych history [employer] history: Reports: non-contributory - Social History Smoking Status: Current some day smoker Smokeless Tobacco Status: No Alcohol use: Reports: rarely Drug use: Reports: none Physical Exam - General Limitations: no limitations General appearance: alert, in distress (Due to pain) Course Vital Signs Temperature 97.8 F 04/20/18 13:01 Pulse Rate 93 04/20/18 13:01 Respiratory Rate 20 04/20/18 13:01 Blood Pressure 114/82 04/20/18 13:01 O2 Sat by Pulse Oximetry 95 04/20/18 13:01 Temperature 97.8 F 04/20/18 13:01 Pulse Rate 84 04/20/18 14:19 Respiratory Rate 18 04/20/18 15:12 Blood Pressure 118/74 04/20/18 15:12 O2 Sat by Pulse Oximetry 97 04/20/18 14:19 Oxygen Delivery Oxygen Delivery Nasal Cannula Medical Decision Making - Lab Data Result diagrams: 04/20/18 13:23 04/20/18 13:23 Lab Results 04/20/18 04/20/18 04/20/18 Range/Units 13:23 13:23 13:23 WBC 8.2 (4.3-11.1) K/mcL RBC 4.26 (3.82-4.97) M/mcL Hgb 13.5 (11.5-15.4) g/dL Hct 40.5 (35.3-44.9) % MCV 95.1 (83.0-100.0) fL MCH 31.7 (28.0-33.3) pg MCHC 33.3 (31.6-35.5) g/dL RDW 12.3 (11.5-14.5) % Plt Count 294 (140-400) K/mcL MPV 10.1 (9.4-12.4) fL Immature Gran % 0.6 (0-4) % Seg Neutrophils % 81.3 % Lymphocytes % 9.9 % Monocytes % 6.1 % Eosinophils % 1.7 % Basophils % 0.4 % Neutrophils # 6.6 (1.6-8.9) K/mcL Lymphocytes # 0.8 (0.6-4.6) K/mcL Monocytes # 0.5 (0.0-1.3) K/mcL Eosinophils # 0.1 (0.0-0.6) K/mcL Basophils # 0.0 (0.0-0.2) K/mcL Sodium 135 L (136-145) mEq/L Potassium 4.0 (3.5-5.1) mEq/L Chloride 102 (98-107) mEq/L Carbon Dioxide 22 L (23-29) mEq/L BUN 8 (8-23) mg/dL Creatinine 0.61 (0.60-1.20) mg/dL Est GFR ( Amer) > 60 (> 60) Est GFR (Non-Af Amer) > 60 (> 60) BUN/Creatinine Ratio 13 (6-26) Glucose 76 (70-105) mg/dL Calculated Osmolality 277 L (280-300) Lactic Acid 0.8 (0.5-2.2) mmol/L Calcium 8.5 L (8.6-10.3) mg/dL Total Bilirubin 0.2 L (0.3-1.0) mg/dL AST 17 (13-39) Units/L ALT 11 (7-52) Units/L Alkaline Phosphatase 63 (34-104) Units/L Troponin I < 0.03 (< 0.04) ng/mL Serum Total Protein 5.9 L (6.4-8.9) g/dL Albumin 3.0 L (3.5-5.7) g/dL Globulin 2.9 (2.4-3.5) g/dL Albumin/Globulin Ratio 1.0 L (1.1-2.2) Attestation Statement - Attestation Attestation: I examined this patient and my medical decision-making was reviewed with the Resident Physician. I agree with the documented findings, disposition and treatment plan as described except to the extent set forth below. [id number] time provided Patient presents to the emergency department with abdominal pain. She recent had an appendectomy after ruptured. She has a TOBIAS drain in place
[2018-04-20 13:55] LABS: Basophils % 0.4 %; Eosinophils # 0.1 K/mcL (0.0-0.6); Eosinophils % 1.7 %; Hematocrit 40.5 % (35.3-44.9); Hemoglobin 13.5 g/dL (11.5-15.4); Immature Granulocytes % 0.6 % (0-4); Lymphocytes # 0.8 K/mcL (0.6-4.6); Lymphocytes % 9.9 %; Mean Corpuscular HGB Conc 33.3 g/dL (31.6-35.5); Mean Corpuscular Hemoglobin 31.7 pg (28.0-33.3); Mean Corpuscular Volume 95.1 fL (83.0-100.0); Mean Platelet Volume 10.1 fL (9.4-12.4); Monocytes # 0.5 K/mcL (0.0-1.3); Monocytes % 6.1 %; Neutrophils # 6.6 K/mcL (1.6-8.9); Platelet Count 294 K/mcL (140-400); Red Blood Count 4.26 M/mcL (3.82-4.97); Red Cell Distribution Width 12.3 % (11.5-14.5); Segmented Neutrophils % 81.3 %
[2018-04-20] MEDS ORDERED: Piperacillin/Tazobactam 3.375 GM in 0.9 % Sodium Chloride Mini Bag 100 ML IVPB ONE (14:10)
[2018-04-20 14:12] LABS: Alanine Aminotransferase 11 Units/L (7-52); Alkaline Phosphatase 63 Units/L (34-104); Aspartate Amino Transferase 17 Units/L (13-39); BUN/Creatinine Ratio 13 (6-26); Bilirubin,Total 0.2 mg/dL (0.3-1.0); Blood Urea Nitrogen 8 mg/dL (8-23); Calcium 8.5 mg/dL (8.6-10.3); Carbon Dioxide 22 mEq/L (23-29); Chloride 102 mEq/L (98-107); Globulin 2.9 g/dL (2.4-3.5); Glucose 76 mg/dL (70-105); Osmolality,Calculated 277 (280-300); Sodium 135 mEq/L (136-145); Total Protein 5.9 g/dL (6.4-8.9); Troponin I < 0.03 ng/mL (< 0.04); eGFR For African Americans > 60 (> 60); eGFR For Non-African Americans > 60 (> 60)
[2018-04-20] MEDS ORDERED: Ondansetron 4 MG/2 ML VIAL IVP ONE (14:20)
[2018-04-20 14:54] LABS: Bilirubin,Urine Negative (Negative); Blood,Urine Trace (Negative); Clarity,Urine Clear (Clear); Color,Urine Yellow (Yellow); Glucose,Urine (UA) Normal (Normal); Ketones,Urine 80 mg/dL (Negative); Leukocyte Esterase,Urine Negative (Negative); Nitrite,Urine Negative (Negative); Protein,Urine Negative (Neg-Trace); Specific Gravity,Urine > 1.030 (1.010-1.025); Urobilinogen,Urine Normal (Normal)
[2018-04-20 14:57] LABS: Bacteria,Urine None Seen per hpf (None-Few); Hyaline Casts,Urine None Seen per lpf (None-Few); Squamous Epithelial Cell,Urine Many per lpf (None-Few); WBC,Urine 0-3 per hpf (0-3)
--- NOTE | 2018-04-20 15:00 | General Surg History&Physical ---
<Idalia Aguilar - Last Filed: 04/20/18 15:56> Date of Encounter: 04/20/18 Time of Encounter: 14:59 Assessment and Plan (1) Abdominal pain Current Visit: Yes Status: Acute The assessment and plan as outlined above was discussed with the patient and/or family members who expressed understanding and agreement. All questions were answered. POD #5 lap appy and TOBIAS drain placement Her appendix was noted to have been ruptured and her final pathology noted acute perforated suppurative appendicitis with fibrinopurulent periappendicitis. Readmitted on 04/20/2018. CT noted dilated small bowel loops and a likely transition point in the pelvis, no fluid collections noted, mild ascites Plan: Supportive care and discomfort management Scheduled toradol and Ofirmev PRN SL oxycodone NPO IVF GI and DVT prophylaxis serial abdominal exams repeat am labs c-diff study continue IV ATBX Qualifiers: Abdominal location: right lower quadrant Qualified Code(s): R10.31 - Right lower quadrant pain (2) Postoperative ileus Current Visit: Yes Status: Acute Ileus versus small bowel obstruction denies vomiting. He has had 2 episodes of liquid stool. Abdomen is nondistended. Supportive care and discomfort management as above while awaiting full return of bowel function (3) Cough Current Visit: No Status: Acute Patient noted Z Nacho treatment prior to previous admission on 04/15/2018 for cough. She was treated during her recent hospital stay for acute respiratory failure and community acquired pneumonia. Repeat CT on 04/20/2018 noted mild bilateral pleural effusions and continued atelectasis. We will continue her home Symbicort, add flutter valve albuterol treatments, aggressive pulmonary toileting, and continue IV antibiotics. She was started on Zosyna nd Vanc in the ER; however given her previous treatment for community aquired PNA, normal WBC, and afebrile- will switch back to Levaquin Flagyl Titrate oxygen to keep stats greater than 92% Repeat to view chest x-ray in the morning see assessment and plan above for further recommendations (4) COPD (chronic obstructive pulmonary disease) Current Visit: No Status: Chronic See assessment and plan above Qualifiers: COPD type: unspecified COPD Qualified Code(s): J44.9 - Chronic obstructive pulmonary disease, unspecified (5) Community acquired pneumonia Current Visit: Yes Status: Acute Versus acute atelectasis See assessment and plan above Qualifiers: Laterality: unspecified laterality Qualified Code(s): J18.9 - Pneumonia, unspecified organism History of Present Illness Chief complaint: abdominal pain, cough HPI: Ms. Vincent is a 63 year old female who was recently discharged on 04/17/2018 following a laproscopic appendectomy and drain placement on 04/15/2018. Her appendix was noted to have been ruptured and her final pathology noted acute perforated suppurative appendicitis with fibrinopurulent periappendicitis. Her hospital course was complicated by pain control and and acute respiratory failure (detailed below). Per previous record review, Patient was to be discharged 04/17; however, when FLOORING SALESPERSON entered room to reviewed D/c instructions, patient stated she had independently replaced her O2 because she felt short of breath. She reported a cough with which she had difficulty clearing sputum due to pain. She was recommended to continue deep breathing, provided with IV toradol (which she refused) and a percocet. Per previous hospital summary, she reported a cough and use of a z-nacho prior to admission on the . She had two CXRs (the first showing stable COPD and the second with new opacities/pleural effusions). She was treated with supplemental O2 per nasal cannula, aggressive pulmonary treatments (mucomyst, symbicort, accuneb, and cipro was switched to Levaquin). Her respiratory status greatly improved on 04/17/2018 and she was on RA prior to d/c. She was sent home with supplemental O2 per NC, Levaquin and Flagyl. She remained a-febrile. She was also discharged with her TOBIAS drain in place and she was emptying 100-150 ML clear straw colored fluid daily. Her discomfort was difficult to control as she stated she was unable to take NSAIDs per mouth d/t her gastric sleeve. She was able to use toradol IV. She was discharged with the recommendation to take 650 mg tylenol every 6 hours and PRN percocet for breakthrough pain. She states she had been tolerating the discomfort at home on Tuesday and Tuesday-even noting sitting outside on the porch until 2 or 3 am. She reports tolerating her diet at home. Today she began having increased lower abdominal discomfort and states the pain medication was not sufficient to control her discomfort. She reports one episode of diarrhea yesterday and one today. She denies vomiting, but endorses feeling nauseated. She denies distention but endorses continued feelings of abdominal swelling after surgery. She denies fevers, CP, SOB, or syncope. She endorses feelings of lightheadedness this am due to pain, difficulty initiating a urinary stream, but denies burning with urination. Past Med Surg Social Fam HX - Past Medical History Source: patient Medical history: COPD, other (obesity) Psychiatric history: no psych history - Past Surgical History Surgical History: appendectomy, other (Gastric sleeve 2010) Additional surgical history: 2010-sleeve surgery, stomach - Social History Smoking Status: Current some day smoker Smokeless Tobacco Status: No Alcohol use: rarely Drug use: none - Family History Brother Hx Family Cardiac Disorders: Yes Mother Hx Family Cancer: Yes Father Hx Family Cancer: Yes Medications and Allergies Docusate Sodium [Colace] 100 mg PO BID 14 Days #30 capsule 04/17/18 [Rx] GuaiFENesin/Dextromethorphan [Mucinex DM] 1 each PO BID #14 tab.er.12h 04/17/18 [Rx] Ondansetron ODT [Zofran ODT] 4 mg SL Q4HR PRN #15 tab.rapdis 04/17/18 [Rx] OxyCODONE/APAP 5/325 [Percocet 5/325 MG] 1 each PO Q6HR PRN 7 Days #28 tablet [Rx] metroNIDAZOLE [Flagyl] 500 mg PO TID 7 Days #21 tablet 04/17/18 [Rx] Budesonide/Formoterol 80/4.5 [Symbicort 80/4.5] 2 puff IH BID #1 hfa.aer.ad 01/01 [Rx] Acetaminophen [Non-Aspirin] 325 mg PO DAILY PRN 04/20/18 [History] levoFLOXacin [Levaquin] 750 mg PO DAILY 04/20/18 [History] 3 Allergy/AdvReac Type Severity Reaction Status Date / Time NSAIDS (Non-Steroidal AdvReac See Verified 04/15/18 14:17 Anti-Inflamma Comments Review of Systems All systems PM: reviewed and no additional remarkable complaints except as stated All systems PM: The remainder of the systems were reviewed and are negative General Surgery Exam Initial Vital Signs Temp Pulse Resp BP Pulse Ox 97.8 F 93 20 114/82 95 04/20/18 13:01 04/20/18 13:01 04/20/18 13:01 04/20/18 13:01 04/20/18 13:01 - General physical appearance no distress, moderate pain - Eyes normal ocular movement - ENT normal mucosa, atraumatic, normocephalic - Neck no venous distension - Respiratory other (decreased respiratory effort, course) - Cardiovascular Cardiovascular exam: Present: RRR, 15, 16 - Abdomen Abdomen general surgery: Present: bowel sounds present, soft, tender, wound (TOBIAS drain site WNL) Abdominal Tenderness: Present: RLQ, LLQ Hernia: Present: none - Incision Incision: Present: clean and dry, intact - Integumentary Integumentary general surgery: Present: warm and dry, no abnormal pigmentation - Neurologic Present: normal coordination, normal sensation - Musculoskeletal Present: normal gait. Absent: normal posture (gaurding posture) - Psychiatric Psychiatric general surgery: Present: A&Ox3, appropriate, oriented to person, oriented to place, oriented to time, speech is normal Results - Labs 04/20/18 13:23 04/20/18 13:23 Abnormal lab results Sodium 135 mEq/L (136-145) L 04/20/18 13:23 Carbon Dioxide 22 mEq/L (23-29) L 04/20/18 13:23 Calculated Osmolality 277 (280-300) L 04/20/18 13:23 Calcium 8.5 mg/dL (8.6-10.3) L 04/20/18 13:23 Total Bilirubin 0.2 mg/dL (0.3-1.0) L 04/20/18 13:23 Serum Total Protein 5.9 g/dL (6.4-8.9) L 04/20/18 13:23 Albumin 3.0 g/dL (3.5-5.7) L 04/20/18 13:23 Albumin/Globulin Ratio 1.0 (1.1-2.2) L 04/20/18 13:23 All other labs normal. - Imaging CT scan - abdomen: report reviewed CT scan - pelvis: report reviewed <Victorina Royal - Last Filed: 04/20/18 18:52> Date of Encounter: 04/20/18 Assessment and Plan (1) Abdominal pain Current Visit: Yes Status: Acute The assessment and plan as outlined above was discussed with the patient and/or family members who expressed understanding and agreement. All questions were answered. Qualifiers: Abdominal location: right lower quadrant Qualified Code(s): R10.31 - Right lower quadrant pain (2) Postoperative ileus Current Visit: Yes Status: Acute The assessment and plan as outlined above was discussed with the patient and/or family members who expressed understanding and agreement. All questions were answered. due to abdominal distention and fluid filled will place ngt (patient has sleeve) prn pain control gi/dvt prophylaxis prn antiemetic serial abdominal exams TOBIAS drained removed without incident History of Present Illness HPI: Ms. Vincent is a 63 year old female Past Med Surg Social Fam HX - Past Medical History Source: patient Medical history: other Review of Systems All systems PM: The remainder of the systems were reviewed and are negative General Surgery Exam Initial Vital Signs Temp Pulse Resp BP Pulse Ox 97.8 F 93 20 114/82 95 04/20/18 13:01 04/20/18 13:01 04/20/18 13:01 04/20/18 13:01 04/20/18 13:01 - General physical appearance well developed, no distress, moderate pain - Eyes PERRL, normal ocular movement - ENT normal mucosa, normocephalic - Neck trachea midline - Respiratory normal expansion - Cardiovascular Cardiovascular exam: Present: RRR - Abdomen Abdomen general surgery: Present: bowel sounds present, soft, tender, wound Abdominal Tenderness: Present: RLQ, LLQ - Integumentary Integumentary general surgery: Present: warm and dry - Neurologic Present: CN 2-12 grossly intact - Musculoskeletal Present: normal gait - Psychiatric Psychiatric general surgery: Present: A&Ox3, speech is normal Results - Labs 04/20/18 13:23 04/20/18 13:23 Abnormal lab results Sodium 135 mEq/L (136-145) L 04/20/18 13:23 Carbon Dioxide 22 mEq/L (23-29) L 04/20/18 13:23 Calculated Osmolality 277 (280-300) L 04/20/18 13:23 Calcium 8.5 mg/dL (8.6-10.3) L 04/20/18 13:23 Total Bilirubin 0.2 mg/dL (0.3-1.0) L 04/20/18 13:23 Serum Total Protein 5.9 g/dL (6.4-8.9) L 04/20/18 13:23 Albumin 3.0 g/dL (3.5-5.7) L 04/20/18 13:23 Albumin/Globulin Ratio 1.0 (1.1-2.2) L 04/20/18 13:23 Ur Specific [place] > 1.030 (1.010-1.025) H 04/20/18 14:43 Urine Ketones 80 mg/dL (Negative) H 04/20/18 14:43 Urine Blood Trace (Negative) H 04/20/18 14:43 Urine Microscopic RBC 3-5 per hpf (0-3) H 04/20/18 14:43 Ur Squamous Epith Cells Many per lpf (None-Few) H 04/20/18 14:43 All other labs normal. - Imaging CT scan - abdomen: report reviewed, image reviewed CT scan - pelvis: report reviewed, image reviewed - Attending Attestation I have personally performed a face to face evaluation on this patient. I have reviewed and agree with the care plan. History and Exam by me shows:
[2018-04-20] MEDS ORDERED: *HR* Promethazine 25 MG/ML VIAL IVP PRN (15:44)
[2018-04-20] MEDS ORDERED: Naloxone 0.4 MG/ML INJ IVP PRN (15:44)
[2018-04-20] MEDS ORDERED: Ondansetron 4 MG/2 ML VIAL IVP PRN (15:44)
[2018-04-20] MEDS ORDERED: OXYCODONE Oral CONC 10 MG/0.5 ML ORAL.SYG SL PRN (15:44)
[2018-04-20] MEDS ORDERED: Albuterol Neb 1.25 MG/3 ML VIAL IH SCH (16:00)
[2018-04-20] MEDS: *HR* Heparin 5,000 UNIT/ML VIAL SQ SCH (17:41)
[2018-04-20] MEDS: Pantoprazole 40 MG VIAL IVP SCH (17:43)
[2018-04-20] MEDS: Ketorolac 15 MG/ML VIAL IVP SCH (17:43)
[2018-04-20] MEDS: MetroNIDAZOLE 500 MG/100 ML 500 MG/100 ML BAG IVPB SCH (17:44)
[2018-04-20] MEDS: Levofloxacin 750 MG/150 ML 750 MG/150 ML BAG IVPB SCH (17:44)
[2018-04-20] MEDS: 0.9 % Sodium Chloride 1,000 ML IVC SCH (17:47)
[2018-04-20] MEDS: Acetylcysteine 10% 2 ML INHSOL IH SCH ×2 (19:35→22:13)
[2018-04-20] MEDS: Acetaminophen IV 1,000 MG/100 ML INFUS..BTL IVPB SCH (20:48)
[2018-04-20] MEDS: Ipratropium/Albuterol Neb 3 ML IH SCH (22:13)
[2018-04-20] MEDS: Budesonide/Formoterol 80/4.5 MDI IH SCH (22:14)
[2018-04-21] MEDS: Acetaminophen IV 1,000 MG/100 ML INFUS..BTL IVPB SCH ×5 (00:25→21:21)
[2018-04-21] MEDS: MetroNIDAZOLE 500 MG/100 ML 500 MG/100 ML BAG IVPB SCH ×3 (00:28→18:05)
[2018-04-21] MEDS: Ketorolac 15 MG/ML VIAL IVP SCH ×4 (00:28→18:06)
[2018-04-21] MEDS ORDERED: Acetaminophen IV 1,000 MG/100 ML INFUS..BTL IVPB SCH (00:30)
[2018-04-21] MEDS: Ipratropium/Albuterol Neb 3 ML IH SCH ×4 (04:16→22:06)
[2018-04-21] MEDS: Acetylcysteine 10% 2 ML INHSOL IH SCH ×4 (04:16→22:06)
[2018-04-21 05:52] LABS: Basophils % 0.3 %; Eosinophils # 0.1 K/mcL (0.0-0.6); Eosinophils % 1.6 %; Hematocrit 37.7 % (35.3-44.9); Hemoglobin 12.4 g/dL (11.5-15.4); Immature Granulocytes % 0.5 % (0-4); Lymphocytes # 1.1 K/mcL (0.6-4.6); Lymphocytes % 18.2 %; Mean Corpuscular HGB Conc 32.9 g/dL (31.6-35.5); Mean Corpuscular Hemoglobin 32.1 pg (28.0-33.3); Mean Corpuscular Volume 97.7 fL (83.0-100.0); Mean Platelet Volume 9.6 fL (9.4-12.4); Monocytes # 0.5 K/mcL (0.0-1.3); Monocytes % 7.3 %; Neutrophils # 4.5 K/mcL (1.6-8.9); Platelet Count 295 K/mcL (140-400); Red Blood Count 3.86 M/mcL (3.82-4.97); Red Cell Distribution Width 12.3 % (11.5-14.5); Segmented Neutrophils % 72.1 %
[2018-04-21 06:03] LABS: BUN/Creatinine Ratio 12 (6-26); Blood Urea Nitrogen 7 mg/dL (8-23); Calcium 7.8 mg/dL (8.6-10.3); Carbon Dioxide 16 mEq/L (23-29); Chloride 107 mEq/L (98-107); Glucose 56 mg/dL (70-105); Magnesium 1.7 mg/dL (1.6-2.6); Osmolality,Calculated 278 (280-300); Phosphorous 2.9 mg/dL (2.7-4.5); Potassium 3.8 mEq/L (3.5-5.1); Sodium 136 mEq/L (136-145); eGFR For African Americans > 60 (> 60); eGFR For Non-African Americans > 60 (> 60)
[2018-04-21] MEDS ORDERED: *HR* Dextrose 50 % in Water (Syg) 50 ML SYRINGE IVP ONE (06:07)
[2018-04-21] MEDS: 0.9 % Sodium Chloride 1,000 ML IVC SCH ×2 (06:11→06:23)
[2018-04-21] MEDS: *HR* Heparin 5,000 UNIT/ML VIAL SQ SCH ×2 (06:20→18:06)
[2018-04-21] MEDS: Pantoprazole 40 MG VIAL IVP SCH (08:40)
[2018-04-21] MEDS ORDERED: Dextrose Gel 15 GM/37.5 ML TUBE PO PRN ×2 (11:15)
[2018-04-21] MEDS ORDERED: *HR* Dextrose 50 % in Water (Syg) 50 ML SYRINGE IVP PRN (11:15)
[2018-04-21] MEDS ORDERED: D5% in Water 1,000 ML IVC PRN (11:15)
[2018-04-21] MEDS: Budesonide/Formoterol 80/4.5 MDI IH SCH ×2 (11:31→22:05)
--- NOTE | 2018-04-21 11:42 | General Surgery Progress Note ---
Date of Encounter: 04/21/18 Time of Encounter: 11:41 - Assessment and Plan (1) Abdominal pain Current Visit: Yes Status: Acute POD #6 lap appy and TOBIAS drain placement Her appendix was noted to have been ruptured and her final pathology noted acute perforated suppurative appendicitis with fibrinopurulent periappendicitis. Readmitted on 04/20/2018. CT 04/20 noted dilated small bowel loops and a likely transition point in the pelvis, no fluid collections noted, mild ascites She was admitted for further treatment. NG was placed at bedside. TOBIAS d/c'd 04/21:States abdominal pain is improved compared to yesterday. She does continue to have diarrhea. Cdif negative. She denies vomiting. NG is in place and advanced 8-10 cm per AAS recommendations. F/u KUB noted appropriate positioning. Imaging consistent with a postoperative ileus. Plan: Supportive care and discomfort management NG to LIWS while awaiting return of bowel function Scheduled toradol and Ofirmev in an effort to limit narcotics for bowel function PRN SL oxycodone NPO except ice chips and popsicles IVF GI and DVT prophylaxis serial abdominal exams repeat am labs continue IV ATBX Qualifiers: Abdominal location: right lower quadrant Qualified Code(s): R10.31 - Right lower quadrant pain (2) Postoperative ileus Current Visit: Yes Status: Acute See a/p above (3) Cough Current Visit: No Status: Acute Patient noted Z Nacho treatment prior to previous admission on 04/15/2018 for cough. She was treated during her recent hospital stay for acute respiratory failure and community acquired pneumonia. Repeat CT on 04/20/2018 noted mild bilateral pleural effusions and continued atelectasis. We will continue her home Symbicort, add flutter valve albuterol treatments, aggressive pulmonary toileting, and continue IV antibiotics. She was started on Zosyna nd Vanc in the ER; however given her previous treatment for community aquired PNA, normal WBC, and afebrile- will switch back to Levaquin Flagyl Titrate oxygen to keep stats greater than 92% Repeat to view chest noted stable findings. Continue current treatments Plan: Aggressive pulm toileting Schedule accuneb and symbicort IS Ambulate TID Repeat am labs see assessment and plan above for further recommendations (4) COPD (chronic obstructive pulmonary disease) Current Visit: No Status: Chronic See a/p above Qualifiers: COPD type: unspecified COPD Qualified Code(s): J44.9 - Chronic obstructive pulmonary disease, unspecified (5) Community acquired pneumonia Current Visit: Yes Status: Acute see a/p above Qualifiers: Laterality: unspecified laterality Qualified Code(s): J18.9 - Pneumonia, unspecified organism (6) Left arm pain Current Visit: Yes Status: Acute She reports a "knot in my upper arm after the IV and blood pressures on this side." There is a firm area in the upper arm noted. No erythema noted. Will complete Left UE doppler to r/o dvt (7) Hypoglycemia Current Visit: Yes Status: Acute Currently NPO for ileus Q6 accucheck Hypoglycemia protocol MIV Subjective Patient reports: no new complaints, feels better, still having pain, pain is less, voiding w/o difficulty, flatus, diarrhea, afebrile Objective Vital Signs - Last 8 Hours Temp Pulse Resp BP Pulse Ox 04/21/18 11:13 98.7 F 73 14 134/76 97 04/21/18 07:30 97.7 F 66 16 123/71 98 04/21/18 03:48 98.1 F 92 15 128/77 96 Intake and Output 04/20/18 04/21/18 04/21/18 23:59 07:59 15:59 Intake Total 350 / 350 1200 / 1200 100 / 100 Output Total 0 / 0 0 / 0 Balance 350 / 350 1200 / 1200 100 / 100 Intake: IV Fluids 350 / 350 1200 / 1200 100 / 100 0.9 % Sodium Chloride 1,000 ML 1000 / 1000 @ 125 mls/hr IVC .Q8H KIKI Rx#: [id number] Ofirmev 1,000 mg/100 ml 1,000 100 / 100 100 / 100 100 / 100 mg In 100 ml @ 400 mls/hr IVPB Q6H KIKI Rx#:[id number] Levaquin Premix 750mg/150 mL 150 / 150 750 mg In 150 ml @ 100 mls/hr IVPB Q24H KIKI Rx#:[id number] Flagyl Premix 500 MG/100 ML 500 100 / 100 100 / 100 mg In 100 ml @ 100 mls/hr IVPB Q8HR KIKI Rx#:[id number] Oral 0 / 0 0 / 0 Output: Urine 0 / 0 Gastric Tube Lavage Amount 0 / 0 0 / 0 Right Nare 0 / 0 0 / 0 Gastric Drainage 0 / 0 Other: Stool Size Small Small Stool Consistency loose loose soft soft Stool Color Brown Brown Green # Voids 1 1 1 # Bowel Movements 1 1 Weight 63.4 kg Blood Glucose* 91 59 - General physical appearance no distress, moderate pain - Eyes normal ocular movement - ENT normal nares, normal mucosa, dentures, atraumatic, normocephalic - Neck Neck exam: trachea midline - Respiratory normal respiratory effort, other (Decreased, course) - Cardiovascular Cardiovascular exam: Present: RRR - Abdomen Abdomen: Present: bowel sounds present, soft, tender Abdominal Tenderness: RUQ Hernia: none - Incision Incision: Present: clean and dry, intact - Integumentary no growths, no abnormal pigmentation - Neurologic normal coordination, normal sensation - Musculoskeletal normal posture - Psychiatric oriented to time, oriented to person, oriented to place, memory intact - Labs 04/21/18 05:25 04/21/18 05:25 Diabetes panel 04/21/18 Range/Units 05:25 Sodium 136 (136-145) mEq/L Potassium 3.8 (3.5-5.1) mEq/L Chloride 107 (98-107) mEq/L Carbon Dioxide 16 L (23-29) mEq/L BUN 7 L (8-23) mg/dL Creatinine 0.58 L (0.60-1.20) mg/dL Glucose 56 L (70-105) mg/dL Calcium 7.8 L (8.6-10.3) mg/dL Calcium panel 04/21/18 Range/Units 05:25 Calcium 7.8 L (8.6-10.3) mg/dL Phosphorus 2.9 (2.7-4.5) mg/dL Pituitary panel 04/21/18 Range/Units 05:25 Sodium 136 (136-145) mEq/L Potassium 3.8 (3.5-5.1) mEq/L Chloride 107 (98-107) mEq/L Carbon Dioxide 16 L (23-29) mEq/L BUN 7 L (8-23) mg/dL Creatinine 0.58 L (0.60-1.20) mg/dL Glucose 56 L (70-105) mg/dL Calcium 7.8 L (8.6-10.3) mg/dL Adrenal panel 04/21/18 Range/Units 05:25 Sodium 136 (136-145) mEq/L Potassium 3.8 (3.5-5.1) mEq/L Chloride 107 (98-107) mEq/L Carbon Dioxide 16 L (23-29) mEq/L BUN 7 L (8-23) mg/dL Creatinine 0.58 L (0.60-1.20) mg/dL Glucose 56 L (70-105) mg/dL Calcium 7.8 L (8.6-10.3) mg/dL - VTE Documentation of Mechanical Device: Intermittent pneumatic compression device Consult Discharge Plan - Plan Referrals: Lorna Guerra CNP [Primary Care Provider] -
[2018-04-21] MEDS: D5% in 0.45% NACL w KCl 10 MEQ/1,000 ML MLS IVC SCH (11:56)
--- NOTE | 2018-04-21 12:00 | Electrocardiograph Report ---
[address] [place], [place] [address] Test Date: 2018-04-20 Pat Name: Megan Vincent Department: 103 Room: 3A42 Gender: F [employer]: : 1955 Requested By: Patric Chaudhry Order Number: [id number] Reading MD: Frank Crowe Measurements Intervals [place] Rate: 93 P: 62 SD: 108 QRS: 23 QRSD: 78 T: 32 QT: 352 QTc: 403 Interpretive Statements SINUS RHYTHM WITH SHORT SD INTERVAL WITH FREQUENT VENTRICULAR PREMATURE COMPLEXES BASELINE ARTIFACT Electronically Signed On 04-21-2018 11:58:13 EDT by Frank Crowe
[2018-04-21] MEDS: Levofloxacin 750 MG/150 ML 750 MG/150 ML BAG IVPB SCH (17:00)
[2018-04-22] MEDS: MetroNIDAZOLE 500 MG/100 ML 500 MG/100 ML BAG IVPB SCH ×3 (00:25→16:39)
[2018-04-22] MEDS: Ketorolac 15 MG/ML VIAL IVP SCH ×4 (00:25→16:44)
[2018-04-22] MEDS: Acetaminophen IV 1,000 MG/100 ML INFUS..BTL IVPB SCH ×4 (02:42→21:23)
[2018-04-22] MEDS: Acetylcysteine 10% 2 ML INHSOL IH SCH ×4 (03:51→22:42)
[2018-04-22] MEDS: Ipratropium/Albuterol Neb 3 ML IH SCH ×4 (03:51→22:42)
[2018-04-22] MEDS: *HR* Heparin 5,000 UNIT/ML VIAL SQ SCH ×2 (05:06→16:38)
[2018-04-22] MEDS: D5% in 0.45% NACL w KCl 10 MEQ/1,000 ML MLS IVC SCH ×3 (05:06→23:25)
[2018-04-22 05:26] LABS: Basophils % 0.3 %; Eosinophils # 0.2 K/mcL (0.0-0.6); Eosinophils % 2.9 %; Hematocrit 34.6 % (35.3-44.9); Hemoglobin 11.5 g/dL (11.5-15.4); Immature Granulocytes % 0.5 % (0-4); Lymphocytes # 1.2 K/mcL (0.6-4.6); Lymphocytes % 21.2 %; Mean Corpuscular HGB Conc 33.2 g/dL (31.6-35.5); Mean Corpuscular Hemoglobin 31.3 pg (28.0-33.3); Mean Corpuscular Volume 94.3 fL (83.0-100.0); Mean Platelet Volume 9.7 fL (9.4-12.4); Monocytes # 0.5 K/mcL (0.0-1.3); Monocytes % 8.5 %; Neutrophils # 3.9 K/mcL (1.6-8.9); Platelet Count 292 K/mcL (140-400); Red Blood Count 3.67 M/mcL (3.82-4.97); Red Cell Distribution Width 12.3 % (11.5-14.5); Segmented Neutrophils % 66.6 %
[2018-04-22 05:43] LABS: BUN/Creatinine Ratio 6 (6-26); Blood Urea Nitrogen 3 mg/dL (8-23); Calcium 7.7 mg/dL (8.6-10.3); Carbon Dioxide 18 mEq/L (23-29); Chloride 108 mEq/L (98-107); Glucose 87 mg/dL (70-105); Magnesium 1.7 mg/dL (1.6-2.6); Osmolality,Calculated 280 (280-300); Phosphorous 2.7 mg/dL (2.7-4.5); Potassium 3.4 mEq/L (3.5-5.1); Sodium 137 mEq/L (136-145); eGFR For African Americans > 60 (> 60); eGFR For Non-African Americans > 60 (> 60)
[2018-04-22] MEDS: Pantoprazole 40 MG VIAL IVP SCH (09:59)
[2018-04-22] MEDS: Budesonide/Formoterol 80/4.5 MDI IH SCH ×2 (10:10→22:42)
[2018-04-22] MEDS: Levofloxacin 750 MG/150 ML 750 MG/150 ML BAG IVPB SCH (16:39)
--- NOTE | 2018-04-22 22:18 | General Surgery Progress Note ---
Date of Encounter: 04/22/18 Time of Encounter: 22:15 - Assessment and Plan (1) Postoperative ileus Current Visit: Yes Status: Acute 63F s/p lap appy now with post operative ileus; having bowel function, minimal NG output; due to severity of appendicitis, patient is hesitant about removing Ng tube cont NG tube keep nPO activity as tolerated patient improving overall Subjective Patient reports: no new complaints Objective Vital Signs - Last 8 Hours Temp Pulse Resp BP Pulse Ox 04/22/18 19:32 98.2 F 60 15 125/65 96 04/22/18 15:58 17 95 Intake and Output 04/22/18 04/22/18 04/22/18 07:59 15:59 23:59 Intake Total 1200 / 1200 200 / 200 200 / 200 Output Total 950 / 950 450 / 450 150 / 150 Balance 250 / 250 -250 / -250 50 / 50 Intake: IV Fluids 1200 / 1200 200 / 200 200 / 200 KCl 10mEq in D5-0.45 NaCl 10 1000 / 1000 meq In 1,000 ml @ 75 mls/hr IVC .[id number] KIKI Rx#:[id number] Ofirmev 1,000 mg/100 ml 1,000 100 / 100 100 / 100 200 / 200 mg In 100 ml @ 400 mls/hr IVPB Q6H KIKI Rx#:[id number] Flagyl Premix 500 MG/100 ML 500 100 / 100 100 / 100 mg In 100 ml @ 100 mls/hr IVPB Q8HR KIKI Rx#:[id number] Oral 0 / 0 0 / 0 0 / 0 Output: Urine 600 / 600 300 / 300 150 / 150 Gastric Drainage 350 / 350 150 / 150 Other: Meal npo NPO DINNER Weight 63.9 kg Blood Glucose* 82 100 97 Patient Weight 04/22/18 23:59 Weight 63.9 kg - General physical appearance no distress - Respiratory normal expansion, normal respiratory effort - Cardiovascular Cardiovascular exam: Present: RRR - Abdomen Abdomen: Present: soft, non tender (non distended; ) - Neurologic CN 2-12 grossly intact - Psychiatric oriented to time, oriented to person, oriented to place - Labs 04/22/18 04:46 04/22/18 04:46 Diabetes panel 04/22/18 Range/Units 04:46 Sodium 137 (136-145) mEq/L Potassium 3.4 L (3.5-5.1) mEq/L Chloride 108 H (98-107) mEq/L Carbon Dioxide 18 L (23-29) mEq/L BUN 3 L (8-23) mg/dL Creatinine 0.52 L (0.60-1.20) mg/dL Glucose 87 (70-105) mg/dL Calcium 7.7 L (8.6-10.3) mg/dL Calcium panel 04/22/18 Range/Units 04:46 Calcium 7.7 L (8.6-10.3) mg/dL Phosphorus 2.7 (2.7-4.5) mg/dL Pituitary panel 04/22/18 Range/Units 04:46 Sodium 137 (136-145) mEq/L Potassium 3.4 L (3.5-5.1) mEq/L Chloride 108 H (98-107) mEq/L Carbon Dioxide 18 L (23-29) mEq/L BUN 3 L (8-23) mg/dL Creatinine 0.52 L (0.60-1.20) mg/dL Glucose 87 (70-105) mg/dL Calcium 7.7 L (8.6-10.3) mg/dL Adrenal panel 04/22/18 Range/Units 04:46 Sodium 137 (136-145) mEq/L Potassium 3.4 L (3.5-5.1) mEq/L Chloride 108 H (98-107) mEq/L Carbon Dioxide 18 L (23-29) mEq/L BUN 3 L (8-23) mg/dL Creatinine 0.52 L (0.60-1.20) mg/dL Glucose 87 (70-105) mg/dL Calcium 7.7 L (8.6-10.3) mg/dL - VTE Documentation of Mechanical Device: Intermittent pneumatic compression device Consult Discharge Plan - Plan Referrals: Lorna Guerra CNP [Primary Care Provider] - 04/27/18 9:00 am
[2018-04-22] MEDS ORDERED: Potassium Phosphate 44 MEQ in 0.9 % Sodium Chloride 250 ML IVPB ONE (22:22)
[2018-04-23] MEDS: Ketorolac 15 MG/ML VIAL IVP SCH ×4 (00:50→16:29)
[2018-04-23] MEDS: MetroNIDAZOLE 500 MG/100 ML 500 MG/100 ML BAG IVPB SCH ×3 (00:54→17:10)
[2018-04-23] MEDS: Acetylcysteine 10% 2 ML INHSOL IH SCH ×4 (03:55→22:18)
[2018-04-23] MEDS: Ipratropium/Albuterol Neb 3 ML IH SCH ×4 (03:55→22:17)
[2018-04-23] MEDS: Acetaminophen IV 1,000 MG/100 ML INFUS..BTL IVPB SCH ×4 (06:00→22:02)
[2018-04-23] MEDS: *HR* Heparin 5,000 UNIT/ML VIAL SQ SCH ×2 (06:56→17:10)
[2018-04-23] MEDS: Budesonide/Formoterol 80/4.5 MDI IH SCH ×2 (09:38→22:18)
[2018-04-23 10:14] LABS: BUN/Creatinine Ratio 4 (6-26); Blood Urea Nitrogen 2 mg/dL (8-23); Calcium 8.2 mg/dL (8.6-10.3); Carbon Dioxide 27 mEq/L (23-29); Chloride 106 mEq/L (98-107); Glucose 95 mg/dL (70-105); Magnesium 2.1 mg/dL (1.6-2.6); Osmolality,Calculated 288 (280-300); Phosphorous 3.2 mg/dL (2.7-4.5); Potassium 3.1 mEq/L (3.5-5.1); Sodium 141 mEq/L (136-145); eGFR For African Americans > 60 (> 60); eGFR For Non-African Americans > 60 (> 60)
[2018-04-23] MEDS: Pantoprazole 40 MG VIAL IVP SCH (10:28)
--- NOTE | 2018-04-23 13:15 | General Surgery Progress Note ---
<William Mosqueda - Last Filed: 04/23/18 13:39> Date of Encounter: 04/23/18 Time of Encounter: 13:00 - Assessment and Plan (1) Abdominal pain Current Visit: Yes Status: Acute Sips of clear 250 q8 hours, nonsweetened, noncarbonated Pulled NG tube at noon - output at noon was 20 activity as tolerated Qualifiers: Abdominal location: lower abdomen, unspecified Qualified Code(s): R10.30 - Lower abdominal pain, unspecified Subjective Patient reports: feels better, still having pain, tolerating liquids well, flatus, bowel movement, diarrhea Narrative: Patient is in no acute distress. Reports having watery bowel movements and passing gas. Is ambulating, usually to bathroom. Objective Vital Signs - Last 8 Hours Temp Pulse Resp BP Pulse Ox 04/23/18 11:04 97.8 F 70 14 136/80 97 04/23/18 07:19 98.1 F 70 14 120/72 95 04/23/18 05:30 98.8 F 76 15 122/71 93 Intake and Output 04/22/18 04/23/18 04/23/18 23:59 07:59 15:59 Intake Total 1450 / 1450 204 / 204 100 / 100 Output Total 750 / 750 2700 / 2700 460 / 460 Balance 700 / 700 -2496 / -2496 -360 / -360 Intake: IV Fluids 1450 / 1450 204 / 204 100 / 100 KCl 10mEq in D5-0.45 NaCl 10 1000 / 1000 meq In 1,000 ml @ 75 mls/hr IVC .[id number] [facility] Rx#:[id number] Ofirmev 1,000 mg/100 ml 1,000 200 / 200 100 / 100 mg In 100 ml @ 400 mls/hr IVPB Q6H [facility] Rx#:[id number] Levaquin Premix 750mg/150 mL 150 / 150 750 mg In 150 ml @ 100 mls/hr IVPB Q24H [facility] Rx#:[id number] Magnesium Sulfate 2 GM In 0.9 % 104 / 104 Sodium Chloride 100 ML @ 104 mls/hr IVPB ONCE ONE Rx#: [id number] Flagyl Premix 500 MG/100 ML 500 100 / 100 100 / 100 mg In 100 ml @ 100 mls/hr IVPB Q8HR [facility] Rx#:[id number] Oral 0 / 0 0 / 0 0 / 0 Output: Urine 750 / 750 1000 / 1000 450 / 450 Urine/Stool Mix 1100 / 1100 Gastric Tube Lavage Amount 10 Right Nare 10 Gastric Drainage 600 / 600 Other: Meal NPO DINNER NPO BREAKFAST Stool Size Small Smear Stool Consistency loose loose Stool Color Brown Green Yellow Green # Bowel Movements 1 # Bowel Movement Diapers 1 Blood Glucose* 97 99 91 - General physical appearance well developed, no distress - Respiratory normal respiratory effort - Cardiovascular Cardiovascular exam: Present: RRR - Abdomen Abdomen: Present: soft Abdominal Tenderness: LUQ, LLQ Hernia: none - Psychiatric oriented to time, oriented to person, oriented to place, speech is normal - Labs 04/22/18 04:46 04/23/18 09:37 Diabetes panel 04/23/18 Range/Units 09:37 Sodium 141 (136-145) mEq/L Potassium 3.1 L (3.5-5.1) mEq/L Chloride 106 (98-107) mEq/L Carbon Dioxide 27 (23-29) mEq/L BUN 2 L (8-23) mg/dL Creatinine 0.57 L (0.60-1.20) mg/dL Glucose 95 (70-105) mg/dL Calcium 8.2 L (8.6-10.3) mg/dL Calcium panel 04/23/18 Range/Units 09:37 Calcium 8.2 L (8.6-10.3) mg/dL Phosphorus 3.2 (2.7-4.5) mg/dL Pituitary panel 04/23/18 Range/Units 09:37 Sodium 141 (136-145) mEq/L Potassium 3.1 L (3.5-5.1) mEq/L Chloride 106 (98-107) mEq/L Carbon Dioxide 27 (23-29) mEq/L BUN 2 L (8-23) mg/dL Creatinine 0.57 L (0.60-1.20) mg/dL Glucose 95 (70-105) mg/dL Calcium 8.2 L (8.6-10.3) mg/dL Adrenal panel 04/23/18 Range/Units 09:37 Sodium 141 (136-145) mEq/L Potassium 3.1 L (3.5-5.1) mEq/L Chloride 106 (98-107) mEq/L Carbon Dioxide 27 (23-29) mEq/L BUN 2 L (8-23) mg/dL Creatinine 0.57 L (0.60-1.20) mg/dL Glucose 95 (70-105) mg/dL Calcium 8.2 L (8.6-10.3) mg/dL - VTE Documentation of Mechanical Device: Intermittent pneumatic compression device Consult Discharge Plan - Plan Referrals: Lorna Guerra CNP [Primary Care Provider] - 04/27/18 9:00 am <Terence Vidal - Last Filed: 04/23/18 14:01> Date of Encounter: 04/23/18 - Assessment and Plan (1) Postoperative ileus Current Visit: Yes Status: Acute Objective Vital Signs - Last 8 Hours Temp Pulse Resp BP Pulse Ox 04/23/18 11:04 97.8 F 70 14 136/80 97 04/23/18 07:19 98.1 F 70 14 120/72 95 Intake and Output 04/22/18 04/23/18 04/23/18 23:59 07:59 15:59 Intake Total 1450 / 1450 204 / 204 100 / 100 Output Total 750 / 750 2700 / 2700 460 / 460 Balance 700 / 700 -2496 / -2496 -360 / -360 Intake: IV Fluids 1450 / 1450 204 / 204 100 / 100 KCl 10mEq in D5-0.45 NaCl 10 1000 / 1000 meq In 1,000 ml @ 75 mls/hr IVC .[id number] [facility] Rx#:[id number] Ofirmev 1,000 mg/100 ml 1,000 200 / 200 100 / 100 mg In 100 ml @ 400 mls/hr IVPB Q6H [facility] Rx#:[id number] Levaquin Premix 750mg/150 mL 150 / 150 750 mg In 150 ml @ 100 mls/hr IVPB Q24H [facility] Rx#:[id number] Magnesium Sulfate 2 GM In 0.9 % 104 / 104 Sodium Chloride 100 ML @ 104 mls/hr IVPB ONCE ONE Rx#: [id number] Flagyl Premix 500 MG/100 ML 500 100 / 100 100 / 100 mg In 100 ml @ 100 mls/hr IVPB Q8HR [facility] Rx#:[id number] Oral 0 / 0 0 / 0 0 / 0 Output: Urine 750 / 750 1000 / 1000 450 / 450 Urine/Stool Mix 1100 / 1100 Gastric Tube Lavage Amount 10 Right Nare 10 Gastric Drainage 600 / 600 Other: Meal NPO DINNER NPO BREAKFAST Stool Size Small Smear Stool Consistency loose loose Stool Color Brown Green Yellow Green # Bowel Movements 1 # Bowel Movement Diapers 1 Blood Glucose* 97 99 91 - Labs 04/22/18 04:46 04/23/18 09:37 Diabetes panel 04/23/18 Range/Units 09:37 Sodium 141 (136-145) mEq/L Potassium 3.1 L (3.5-5.1) mEq/L Chloride 106 (98-107) mEq/L Carbon Dioxide 27 (23-29) mEq/L BUN 2 L (8-23) mg/dL Creatinine 0.57 L (0.60-1.20) mg/dL Glucose 95 (70-105) mg/dL Calcium 8.2 L (8.6-10.3) mg/dL Calcium panel 04/23/18 Range/Units 09:37 Calcium 8.2 L (8.6-10.3) mg/dL Phosphorus 3.2 (2.7-4.5) mg/dL Pituitary panel 04/23/18 Range/Units 09:37 Sodium 141 (136-145) mEq/L Potassium 3.1 L (3.5-5.1) mEq/L Chloride 106 (98-107) mEq/L Carbon Dioxide 27 (23-29) mEq/L BUN 2 L (8-23) mg/dL Creatinine 0.57 L (0.60-1.20) mg/dL Glucose 95 (70-105) mg/dL Calcium 8.2 L (8.6-10.3) mg/dL Adrenal panel 04/23/18 Range/Units 09:37 Sodium 141 (136-145) mEq/L Potassium 3.1 L (3.5-5.1) mEq/L Chloride 106 (98-107) mEq/L Carbon Dioxide 27 (23-29) mEq/L BUN 2 L (8-23) mg/dL Creatinine 0.57 L (0.60-1.20) mg/dL Glucose 95 (70-105) mg/dL Calcium 8.2 L (8.6-10.3) mg/dL - Attending Attestation I have personally seen and examined the patient. I have reviewed pertinent labs , imaging, progress notes, including this one. I agree with the above assessment and plan and wish to include the following... 63F with post operatively ileus; now with return of bowel function; minimal residual after clamping NG tube; okay to begin sips of clears; replete lytes (hypokalemia)
[2018-04-23] MEDS ORDERED: Potassium Chloride 40 MEQ, Lidocaine 1% 2 ML in D5% in Water 500 ML IVPB ONE (13:59)
[2018-04-23] MEDS: D5% in 0.45% NACL w KCl 10 MEQ/1,000 ML MLS IVC SCH (15:10)
[2018-04-23] MEDS: Levofloxacin 750 MG/150 ML 750 MG/150 ML BAG IVPB SCH (17:09)
[2018-04-23] MEDS ORDERED: Ipratropium/Albuterol Neb 3 ML IH PRN (22:10)
[2018-04-23] MEDS ORDERED: Acetylcysteine 10% 2 ML INHSOL IH PRN (22:13)
[2018-04-23] MEDS ORDERED: Budesonide/Formoterol 80/4.5 MDI IH PRN (22:17)
[2018-04-24] MEDS: MetroNIDAZOLE 500 MG/100 ML 500 MG/100 ML BAG IVPB SCH ×3 (00:30→16:21)
[2018-04-24] MEDS: Ketorolac 15 MG/ML VIAL IVP SCH ×4 (00:31→18:45)
[2018-04-24] MEDS: Acetaminophen IV 1,000 MG/100 ML INFUS..BTL IVPB SCH ×4 (05:00→22:30)
[2018-04-24] MEDS: D5% in 0.45% NACL w KCl 10 MEQ/1,000 ML MLS IVC SCH ×2 (06:21→22:29)
[2018-04-24] MEDS: *HR* Heparin 5,000 UNIT/ML VIAL SQ SCH ×2 (06:21→18:44)
[2018-04-24] MEDS: Pantoprazole 40 MG VIAL IVP SCH (07:58)
[2018-04-24 08:56] LABS: Basophils % 0.5 %; Eosinophils # 0.1 K/mcL (0.0-0.6); Eosinophils % 2.2 %; Hematocrit 38.2 % (35.3-44.9); Immature Granulocytes % 0.2 % (0-4); Lymphocytes # 1.3 K/mcL (0.6-4.6); Lymphocytes % 22.1 %; Mean Corpuscular HGB Conc 34.6 g/dL (31.6-35.5); Mean Corpuscular Hemoglobin 32.6 pg (28.0-33.3); Mean Corpuscular Volume 94.3 fL (83.0-100.0); Mean Platelet Volume 9.6 fL (9.4-12.4); Monocytes # 0.4 K/mcL (0.0-1.3); Monocytes % 6.5 %; Neutrophils # 4.1 K/mcL (1.6-8.9); Platelet Count 337 K/mcL (140-400); Red Blood Count 4.05 M/mcL (3.82-4.97); Red Cell Distribution Width 12.6 % (11.5-14.5); Segmented Neutrophils % 68.5 %
[2018-04-24 09:00] LABS: Hemoglobin 13.2 g/dL (11.5-15.4)
[2018-04-24 09:20] LABS: Alanine Aminotransferase 10 Units/L (7-52); Albumin 2.8 g/dL (3.5-5.7); Albumin/Globulin Ratio 1.1 (1.1-2.2); Alkaline Phosphatase 53 Units/L (34-104); Aspartate Amino Transferase 14 Units/L (13-39); BUN/Creatinine Ratio 4 (6-26); Bilirubin,Total 0.3 mg/dL (0.3-1.0); Blood Urea Nitrogen 2 mg/dL (8-23); Calcium 8.1 mg/dL (8.6-10.3); Carbon Dioxide 23 mEq/L (23-29); Chloride 110 mEq/L (98-107); Globulin 2.6 g/dL (2.4-3.5); Glucose 105 mg/dL (70-105); Osmolality,Calculated 287 (280-300); Potassium 3.5 mEq/L (3.5-5.1); Sodium 140 mEq/L (136-145); Total Protein 5.4 g/dL (6.4-8.9); eGFR For African Americans > 60 (> 60); eGFR For Non-African Americans > 60 (> 60)
--- NOTE | 2018-04-24 10:28 | General Surgery Progress Note ---
Addendum entered and electronically signed by William Mosqueda 04/24/18 14:53: Patient tolerating soft diet at lunch. Experienced cramping 20 mins after rated 8/10. Original Note: <William - Last Filed: 04/24/18 10:38> Date of Encounter: 04/24/18 Time of Encounter: 11:00 - Assessment and Plan (1) Abdominal pain Status: Acute Advanced diet to soft solids assess at noon - d/c potentially if well tolerated encourage ambulation and incentive spirometry Qualifiers: Abdominal location: lower abdomen, unspecified Qualified Code(s): R10.30 - Lower abdominal pain, unspecified (2) Diarrhea Status: Acute Ordered GI panel, follow up results Qualifiers: Qualified Code(s): R19.7 - Diarrhea, unspecified Subjective Patient reports: still having pain, tolerating liquids well Narrative: Patient appears comfortable. She reports one episode of night sweats, but has not had an episode since. She is tolerating clears 250cc q8hr. Reports having watery green bowel movements. Reports moderate abdominal pain in lower quadrants. Objective Vital Signs - Last 8 Hours Temp Pulse Resp BP Pulse Ox 04/24/18 07:12 98.8 F 67 18 120/70 95 04/24/18 05:57 98.6 F 78 16 128/81 93 Intake and Output 04/23/18 04/24/18 04/24/18 23:59 07:59 15:59 Intake Total 350 / 350 1100 / 1100 Output Total 1100 / 1100 1900 / 1900 300 / 300 Balance -750 / -750 -800 / -800 -300 / -300 Intake: IV Fluids 350 / 350 1100 / 1100 KCl 10mEq in D5-0.45 NaCl 10 1000 / 1000 meq In 1,000 ml @ 75 mls/hr IVC .[id number] [facility] Rx#:[id number] Ofirmev 1,000 mg/100 ml 1,000 100 / 100 mg In 100 ml @ 400 mls/hr IVPB Q6H [facility] Rx#:[id number] Levaquin Premix 750mg/150 mL 150 / 150 750 mg In 150 ml @ 100 mls/hr IVPB Q24H [facility] Rx#:[id number] Flagyl Premix 500 MG/100 ML 500 100 / 100 100 / 100 mg In 100 ml @ 100 mls/hr IVPB Q8HR [facility] Rx#:[id number] Oral 0 / 0 0 / 0 Output: Urine 900 / 900 1900 / 1900 300 / 300 Stool 200 / 200 Other: Meal NPO npo Stool Size Moderate Small Small Stool Consistency liquid loose Stool Characteristics Mucoid Stool Color Brown Green Green # Bowel Movements 1 1 Blood Glucose* 91 92 - General physical appearance well developed, no distress - Respiratory normal respiratory effort - Labs 04/24/18 08:29 04/24/18 08:29 Diabetes panel 04/24/18 Range/Units 08:29 Sodium 140 (136-145) mEq/L Potassium 3.5 (3.5-5.1) mEq/L Chloride 110 H (98-107) mEq/L Carbon Dioxide 23 (23-29) mEq/L BUN 2 L (8-23) mg/dL Creatinine 0.55 L (0.60-1.20) mg/dL Glucose 105 (70-105) mg/dL Calcium 8.1 L (8.6-10.3) mg/dL AST 14 (13-39) Units/L ALT 10 (7-52) Units/L Alkaline Phosphatase 53 (34-104) Units/L Albumin 2.8 L (3.5-5.7) g/dL Calcium panel 04/24/18 Range/Units 08:29 Calcium 8.1 L (8.6-10.3) mg/dL Albumin 2.8 L (3.5-5.7) g/dL Pituitary panel 04/24/18 Range/Units 08:29 Sodium 140 (136-145) mEq/L Potassium 3.5 (3.5-5.1) mEq/L Chloride 110 H (98-107) mEq/L Carbon Dioxide 23 (23-29) mEq/L BUN 2 L (8-23) mg/dL Creatinine 0.55 L (0.60-1.20) mg/dL Glucose 105 (70-105) mg/dL Calcium 8.1 L (8.6-10.3) mg/dL Adrenal panel 04/24/18 Range/Units 08:29 Sodium 140 (136-145) mEq/L Potassium 3.5 (3.5-5.1) mEq/L Chloride 110 H (98-107) mEq/L Carbon Dioxide 23 (23-29) mEq/L BUN 2 L (8-23) mg/dL Creatinine 0.55 L (0.60-1.20) mg/dL Glucose 105 (70-105) mg/dL Calcium 8.1 L (8.6-10.3) mg/dL Total Bilirubin 0.3 (0.3-1.0) mg/dL AST 14 (13-39) Units/L ALT 10 (7-52) Units/L Alkaline Phosphatase 53 (34-104) Units/L Albumin 2.8 L (3.5-5.7) g/dL - VTE Documentation of Mechanical Device: Intermittent pneumatic compression device Consult Discharge Plan - Plan Instructions: High Fiber Diet (GEN), Chronic Obstructive Pulmonary Disease (DC) Additional Instructions: Stop antibiotics. Take the dicyclomine if needed for abdominal cramps. Ensure you are eating enough fiber and if you are not able to consume enough fiber take Metamucil or Benefiber daily Return for worsening or return of symptoms. Ensure you are drinking at least 64 oz of liquid each day (more if you have diarrhea). Referrals: Naya Stoner CNP [Advanced Practice Nurse] - 05/01/18 2:00 pm Guerra,Lorna Gold CNP [Primary Care Provider] - 04/27/18 9:00 am Prescriptions: Dicyclomine [Bentyl] 10 mg PO QID PRN #30 capsule PRN Reason: abdominal cramping <Victorina Royal - Last Filed: 04/25/18 17:03> Date of Encounter: 04/24/18 - Assessment and Plan (1) Abdominal pain Status: Acute patient tolerating soft diet, does complain of a little abdominal cramping but no symptoms similar to her previous obstructive symptoms continue diet dc planning in am Qualifiers: Abdominal location: lower abdomen, unspecified Qualified Code(s): R10.30 - Lower abdominal pain, unspecified (2) Postoperative ileus Status: Resolved has resolved (3) Diarrhea Status: Acute Qualifiers: Diarrhea type: unspecified type Qualified Code(s): R19.7 - Diarrhea, unspecified (4) Diarrhea Status: Acute ok to take immodium prn for diarrhea Qualifiers: Diarrhea type: unspecified type Qualified Code(s): R19.7 - Diarrhea, unspecified Subjective Patient reports: no new complaints, still having pain, tolerating a regular diet (tolerating soft diet), flatus, diarrhea, afebrile Objective Intake and Output 04/25/18 04/25/18 04/25/18 07:59 15:59 23:59 Intake Total 100 / 100 0 / 0 Output Total 0 / 0 Balance 100 / 100 0 / 0 Intake: IV Fluids 100 / 100 Flagyl Premix 500 MG/100 ML 500 100 / 100 mg In 100 ml @ 100 mls/hr IVPB Q8HR [facility] Rx#:[id number] Oral 0 / 0 0 / 0 Output: Urine 0 / 0 Other: Meal Breakfast Percent of Meal Consumed 5% # Voids 1 Weight 64.7 kg Blood Glucose* 98 Patient Weight 04/25/18 23:59 Weight 64.7 kg - General physical appearance well developed, well nourished, no distress - Eyes PERRL, normal ocular movement - ENT normal mucosa, normocephalic - Neck Neck exam: trachea midline - Respiratory normal expansion, normal respiratory effort - Cardiovascular Cardiovascular exam: Present: RRR - Abdomen Abdomen: Present: bowel sounds present, soft, non tender. Absent: distended - Integumentary no rash, no growths - Neurologic CN 2-12 grossly intact - Musculoskeletal normal posture - Psychiatric oriented to time, oriented to person, oriented to place, speech is normal, memory intact - Labs 04/24/18 08:29 04/24/18 08:29 - Attending Attestation I examined this patient and my medical decision-making was reviewed with the Resident Physician. I agree with the documented findings, disposition and treatment plan as described except to the extent set forth below.
[2018-04-24 14:15] LABS: Adenovirus F 40/41 PCR Not detected (Not detect); Astrovirus PCR Not detected (Not detect); C.difficile Toxin A/B by PCR Not detected (Not detect); Campylobacter by PCR Not detected (Not detect); Cryptosporidium by PCR Not detected (Not detect); Cyclospora cayetanensis PCR Not detected (Not detect); E. coli O157 by PCR Not detected (Not detect); Entamoeba histolytica PCR Not detected (Not detect); Enteroaggregative E.coli(EAEC) Not detected (Not detect); Enteropathogenic E.coli(EPEC) Not detected (Not detect); Enterotoxigenic E.coli (ETEC) Not detected (Not detect); Giardia lamblia PCR Not detected (Not detect); Norovirus GI/GII PCR Not detected (Not detect); Plesiomonas shigelloides PCR Not detected (Not detect); Rotavirus A PCR Not detected (Not detect); Salmonella PCR Not detected (Not detect); Sapovirus PCR Not detected (Not detect); Shig/EnteroinvasiveE coli EIEC Not detected (Not detect); Shigalike tox-prod E coli STEC Not detected (Not detect); Vibrio PCR Not detected (Not detect); Vibrio cholerae PCR Not detected (Not detect); Yersinia enterocolitica PCR Not detected (Not detect)
--- NOTE | 2018-04-24 14:24 | General Surgery Progress Note ---
Date of Encounter: 04/24/18 Time of Encounter: 14:30 - Assessment and Plan (1) Abdominal pain Current Visit: Yes Status: Acute D/C - Tolerated lunch meal, passing stools, ambulatory Qualifiers: Abdominal location: lower abdomen, unspecified Qualified Code(s): R10.30 - Lower abdominal pain, unspecified (2) Diarrhea Current Visit: Yes Status: Acute Ordered GI panel, follow up results Qualifiers: Qualified Code(s): R19.7 - Diarrhea, unspecified Subjective Patient reports: no new complaints, feels better, flatus, bowel movement Narrative: Patient reports she tolerated soft diet. Had painful stomach cramps 20 minutes following meal - rated 8/10. She feels like she should be okay to go home today or tomorrow, possibly wants to try eating one more meal. Objective Vital Signs - Last 8 Hours Temp Pulse Resp BP Pulse Ox 04/24/18 10:28 98.5 F 68 18 124/81 98 Intake and Output 04/23/18 04/24/18 04/24/18 23:59 07:59 15:59 Output Total 300 / 300 Balance -300 / -200 Output: Urine 300 / 300 Other: Stool Size Small Stool Characteristics Mucoid Stool Color Green Blood Glucose* 85 - General physical appearance well developed, well nourished, no distress - Respiratory normal respiratory effort - Cardiovascular Cardiovascular exam: Present: RRR - Abdomen Abdomen: Present: soft, non tender Hernia: none - Labs 04/24/18 08:29 04/24/18 08:29 - VTE Documentation of Mechanical Device: Intermittent pneumatic compression device Consult Discharge Plan - Plan Referrals: Lorna Guerra CNP [Primary Care Provider] - 04/27/18 9:00 am
[2018-04-24] MEDS: Levofloxacin 750 MG/150 ML 750 MG/150 ML BAG IVPB SCH (16:20)
[2018-04-25] MEDS: MetroNIDAZOLE 500 MG/100 ML 500 MG/100 ML BAG IVPB SCH ×2 (00:31→09:19)
[2018-04-25] MEDS: Ketorolac 15 MG/ML VIAL IVP SCH ×3 (00:35→11:20)
[2018-04-25] MEDS: Acetaminophen IV 1,000 MG/100 ML INFUS..BTL IVPB SCH ×2 (02:29→09:19)
[2018-04-25] MEDS: *HR* Heparin 5,000 UNIT/ML VIAL SQ SCH (07:07)
[2018-04-25 07:52] VITALS: BP 100/69
[2018-04-25] MEDS: Pantoprazole 40 MG VIAL IVP SCH (09:19)
--- NOTE | 2018-04-25 09:45 | Discharge Summary ---
Date of Encounter: 04/25/18 Time of Encounter: 10:30 - Discharge Diagnosis (1) Abdominal pain Priority: Primary Status: Acute Qualifiers: Abdominal location: lower abdomen, unspecified Qualified Code(s): R10.30 - Lower abdominal pain, unspecified (2) Postoperative ileus Priority: Primary Status: Acute (3) Cough Priority: Secondary Status: Acute (4) COPD (chronic obstructive pulmonary disease) Priority: Secondary Status: Chronic Qualifiers: COPD type: unspecified COPD Qualified Code(s): J44.9 - Chronic obstructive pulmonary disease, unspecified (5) Community acquired pneumonia Priority: Secondary Status: Acute Qualifiers: Laterality: unspecified laterality Qualified Code(s): J18.9 - Pneumonia, unspecified organism (6) Left arm pain Priority: Secondary Status: Acute (7) Hypoglycemia Priority: Secondary Status: Acute (8) Superficial vein thrombosis Priority: Secondary Status: Acute Comments: This will heal with time General Surgery Exam Initial Vital Signs Temp Pulse Resp BP Pulse Ox 97.8 F 93 20 114/82 95 04/20/18 13:01 04/20/18 13:01 04/20/18 13:01 04/20/18 13:01 04/20/18 13:01 Vital Signs Temp Pulse Resp BP Pulse Ox 04/25/18 07:37 97.6 F 102 16 100/69 91 04/25/18 04:25 98.6 F 75 15 125/79 94 04/25/18 00:16 98.3 F 73 15 120/75 95 04/24/18 19:18 98.6 F 74 15 114/74 97 04/24/18 14:58 98.4 F 76 18 121/77 95 Intake and Output 04/24/18 04/25/18 04/25/18 23:59 07:59 15:59 Intake Total 1250 / 1250 100 / 100 0 / 0 Output Total 0 / 0 0 / 0 Balance 1250 / 1250 100 / 100 0 / 0 Intake: IV Fluids 1250 / 1250 100 / 100 KCl 10mEq in D5-0.45 NaCl 10 1000 / 1000 meq In 1,000 ml @ 75 mls/hr IVC .[id number] [facility] Rx#:[id number] Levaquin Premix 750mg/150 mL 150 / 150 750 mg In 150 ml @ 100 mls/hr IVPB Q24H [facility] Rx#:[id number] Flagyl Premix 500 MG/100 ML 500 100 / 100 100 / 100 mg In 100 ml @ 100 mls/hr IVPB Q8HR [facility] Rx#:[id number] Oral 0 / 0 0 / 0 0 / 0 Output: Urine 0 / 0 0 / 0 Other: Meal Breakfast Percent of Meal Consumed 5% Stool Consistency loose Stool Color Green # Voids 1 1 # Bowel Movements 1 Weight 64.7 kg Blood Glucose* 112 98 Patient Weight 04/25/18 23:59 Weight 64.7 kg VITAL SIGNS: Reviewed. See [facility] GENERAL: In no apparent distress. HEENT: Normocephalic, atraumatic, pupils are equal and reactive, extraocular motions intact, oropharynx is pink and moist, there is no neck adenopathy or JVD noted. CHEST/RESPIRATORY: The thorax is free from signs of trauma. Lung sounds: clear to auscultation, normal respiratory effort CARDIAC: Regular rate and rhythm. Normal S1 and S2, without murmurs, gallops, or rubs. VASCULAR: No Edema. 2+ peripheral pulses. ABDOMEN: soft, nontender, active bowel sounds INCISION: Surgical incision is clean, dry, and intact. There are no signs of cellulitis or infection noted. MUSCULOSKELETAL: Good range of motion of all major joints. Extremities without clubbing, cyanosis or edema. NEUROLOGIC EXAM: Alert and oriented x 3. Speech normal. Follows commands. PSYCHIATRIC: Mood normal. SKIN: No rash or lesions. - Hospital Course Hospital course: Ms. Vincent is a 63 year old female who presented for readmission on 04/20/2018. Per record review recently discharged on 04/17/2018 following a laproscopic appendectomy and drain placement on 04/15/2018. Her appendix was noted to have been ruptured and her final pathology noted acute perforated suppurative appendicitis with fibrinopurulent periappendicitis. Her first hospital course was complicated by pain control and and acute respiratory failure which she was treated with IV atbx, aggressive RT treatments, and supportive care. She was d/c 'd on 04/20 with expected postoperative tenderness and tolerating liquids without nausea or vomiting. She returned on 04/20/2018 having increased lower abdominal discomfort and states the pain medication was not sufficient to control her discomfort and watery diarrhea. Imaging was consistent with a postoperative ileus. Her stool panel was negative. She was supported with IVF, atbx, and continued RT treatments. She is ambulating and voiding without difficulty, tolerating full liquids without nausea or vomiting, continues to have diarrhea and abdominal cramping, afebrile, vital signs are stable, and white blood cell count remains normal. We will begin discharge planning to home with a follow-up in the office in approximately one week and a follow-up with her PCP as previously scheduled on April 27. She is advised to stop home PO ATBX as she has compelted her course. she is provided a prescription for as needed Bentyl. Time spent discussing smoking cessation with patient: 3 to 10 minutes - Time Spent with Patient Total time spent providing and/or coordinating discharge services: Less than 30 minutes - Discharge Medications Prescriptions: Dicyclomine [Bentyl] 10 mg PO QID PRN #30 capsule PRN Reason: abdominal cramping Home Medications: GuaiFENesin/Dextromethorphan [Mucinex Dm] 1 each PO BID #14 tab.er.12h 04/17/18 [Rx] Ondansetron ODT [Zofran ODT] 4 mg SL Q4HR PRN #15 tab.rapdis 04/17/18 [Rx] OxyCODONE/APAP 5/325 [Percocet 5/325 MG] 1 each PO Q6HR PRN 7 Days #28 tablet [Rx] Budesonide/Formoterol 80/4.5 [Symbicort 80/4.5] 2 puff IH BID #1 hfa.aer.ad 01/01 [Rx] Acetaminophen [Non-Aspirin] 325 mg PO DAILY PRN 04/20/18 [History] Dicyclomine [Bentyl] 10 mg PO QID PRN #30 capsule 04/25/18 [Rx] Allergies/Adverse Reactions: 3 Allergy/AdvReac Type Severity Reaction Status Date / Time NSAIDS (Non-Steroidal AdvReac See Verified 04/15/18 14:17 Anti-Inflamma Comments Date of admission: 04/24/18 09:24 Primary care physician: Lorna Guerra, [employer] Discharging clinician: Idalia Aguilar Anticipated date of discharge: 04/25/18 Labs on day of discharge: Labs from last 24 hours 04/24/18 04/24/18 04/24/18 17:02 12:48 11:45 POC Glucose 112 H 85 Stl C. cayetanensis PCR Not detected Stool Rotavirus A PCR Not detected Stl Adenov F 40/41 PCR Not detected Stool Astrovirus (PCR) Not detected Stool Campylobacter PCR Not detected Stl C. diff Tox A/B PCR Not detected Stool Cryptosporidium PCR Not detected Stl Sh Tox Pr E STEC PCR Not detected Stool E coli O157 PCR Not detected Stl Enterotoxigenic E PCR Not detected Stool EPEC (PCR) Not detected Stool EAEC (PCR) Not detected Stl E. histolytica PCR Not detected Stool Giardia Lamblia PCR Not detected Stool Salmonella PCR Not detected Stool Sapovirus (PCR) Not detected Stl P. shigelloides PCR Not detected Stl Shigella/EIEC PCR Not detected St Y.enterocolitica PCR Not detected Stool Vibrio (PCR) Not detected Stl Vibrio cholerae PCR Not detected Stl Norovirus GI/GII PCR Not detected Stl GI Panel (PCR) Com See below - Patient Status Disposition: Home, Self-Care Condition: Undetermined Functional capacity at discharge: independent ambulation Overall status at discharge: patient is progressing back to baseline - Discharge Instructions Instructions: High Fiber Diet (GEN), Chronic Obstructive Pulmonary Disease (DC) Follow Up With: Lorna Guerra CNP [Primary Care Provider] - 04/27/18 9:00 am Naya Stoner CNP [Advanced Practice Nurse] - 05/01/18 2:00 pm Additional Instructions: Stop antibiotics. Take the dicyclomine if needed for abdominal cramps. Ensure you are eating enough fiber and if you are not able to consume enough fiber take Metamucil or Benefiber daily Return for worsening or return of symptoms. Ensure you are drinking at least 64 oz of liquid each day (more if you have diarrhea). - Diet and Activity Activity: increase activity as tolerated Diet: advance to your usual diet
== END 2018-04-25 11:35 | disposition home or self-care (01) | DRG 388 ==
LOC: EMEROO 12:57 → 3ANU 12:57
PROVIDERS: ADMIT Surgery; ATTEND Surgery